=== PATIENT | male | born 1990 | race Caucasian/White ===

== ENCOUNTER 2018-10-07 14:52 | Emergency (ER) | payer MEDICAID, SELFPAY ==
[2018-10-07 14:53] VITALS: BP 122/75; PULSE 88; RESP 14; TEMP 36.8; O2SAT 98; BMI 28.2
--- NOTE | 2018-10-07 14:57 | RAD_ITS ---
STUDY: X-RAY - LEFT ANKLE REASON FOR EXAM: Male, 28 years old. Pain and swelling. No known injury. TECHNIQUE: 3 view(s) of the ankle. COMPARISON: None. FINDINGS: Normal visualized distal tibia and fibula. Normal medial and lateral malleoli. Normal tibiotalar articulation and ankle mortise. Normal visualized talus and calcaneus. The visualized subtalar, talonavicular, calcaneocuboid and tarsal articulations are normal. The soft tissue structures are unremarkable. RAD/Ankle min 3 Views IMPRESSION: Normal x-ray examination of the ankle. Electronically Signed: Anthony Gilbert, at 15:19 EDT , Service support ,
--- NOTE | 2018-10-07 15:48 | ED.DCSUM_ITS ---
- ER Visit Summary Date of Service: 10/07/18 Chief Complaint: Pain and swelling to left ankle [] History of Present Illness: The patient is a 28 M [presents to the emergency department with pain and swelling since this morning to his left ankle. Patient states that he played basketball yesterday but does not recall a time of injury. Patient having a hard time bearing weight secondary to pain. Denies any fever.] Physical Examination: [Left ankle-patient has some diffuse tenderness to palpation about the ankle joint. Tenderness over the medial and lateral malleolus. He is got small joint effusion noted. No erythema or warmth noted. No tenderness over the Achilles tendon. The Achilles tendon is intact he had a normal Chavarria's test. He is neurovascular intact distally.] Test Results: [X-rays of the left ankle obtained and were normal.] Emergency Department Course and Treatment: [She was given an air splint and crutches.] Treatment Plan: [She will be referred to primary care for follow-up within next 5 to 7 days. Patient given a prescription for naproxen and a few [place] for severe pain.] Disposition: Discharged home stable condition] Impression: Left ankle sprain [] This note was generated with [employer] dictation software. It may contain incorrect words, spelling, and punctuation that were not noted in review of the chart maximilian or to signing ED Disposition - Plan for ED Patient: Referrals: Care Physician,No Primary [Primary Care Provider] -
--- NOTE | 2018-10-07 15:49 | DCINST.ED_ITS ---
ED Disposition - Plan for ED Patient: Instructions: ED Sprain Ankle W X Ray Prescriptions: Hydrocodone Bitart/Apap 5-325 [[place] 5MG-325MG] 1 tab PO Q4H PRN PRN 2 Days #10 tab PRN Reason: Pain Naproxen [Naprosyn] 500 mg PO BID PRN #20 tab Referrals: Care Physician,No Primary [Primary Care Provider] - Jordan Norman III, MD [STAFF PHYSICIAN] - 5-7 Days
== END 2018-10-07 16:20 | disposition home or self-care (01) ==
PROVIDERS: Emergency Provider Emergency Medicine
DX: S93.402A Sprain of unspecified ligament of left ankle, initial encounter (principal); X58.XXXA Exposure to other specified factors, initial encounter; Y93.67 Activity, basketball; Y92.9 Unspecified place or not applicable; Y99.9 Unspecified external cause status; Z72.0 Tobacco use; Z86.19 Personal history of other infectious and parasitic diseases
CPT/HCPCS: 73610; 99284

== ENCOUNTER 2018-10-14 00:33 | Emergency (ER) | payer MEDICAID, SELFPAY ==
[2018-10-14 00:34] VITALS: BP 144/80; PULSE 82; RESP 18; TEMP 37; O2SAT 95; BMI 28.4
--- NOTE | 2018-10-14 00:45 | CT_ITS ---
STUDY: CT ORBITS WITH CONTRAST REASON FOR EXAM: Male, 28 years old. Left periorbital pain and swelling RADIATION DOSAGE (If Supplied By Facility): CTDIvol = ( 29.38 ) mGy, DLP = ( 312.38 ) mGycm TECHNIQUE: The patient was scanned in a multi detector CT scanner. Transaxial imaging was performed following the intravenous administration of 50ML IV Isovue 370. Sagittal and coronal images were reconstructed. Individualized dose optimization techniques were used for this CT. COMPARISON: None. FINDINGS: Normal globes. Normal intraconal spaces. Normal optic nerve sheath complex. Normal bilateral extraocular muscles. Normal lacrimal glands. Soft tissue prominence of the left nasolabial fold with an underlying 9 mm hypoattenuated confluence of the subcutaneous fat. Normal bilateral medial and inferior orbital downs. Normal bilateral maxillary bones. Normal bilateral frontozygomatic arches. Normal bilateral zygomatic temporal arches. Normal frontal sinus. Normal ethmoidal sinuses. Normal maxillary sinuses. Normal sphenoid sinuses. CT/Orb Sella Post Fossa Ear W/CON IMPRESSION: Asymmetric prominence of the and soft tissues of the left nasolabial fold with underlying 9 mm hypoattenuated confluence of the subcutaneous fat, potentially representing a cellulitis with underlying developing abscess. Electronically Signed: Edwin Kowalski MD at 1:19 EDT Tel , Service support ,
--- NOTE | 2018-10-14 00:48 | ED.VISSUMM ---
- ER Visit Summary Date of Service: 10/14/18 Chief Complaint: Left eye pain and headache History of Present Illness: The patient is a 28 M reports having surgery to his orbital bone on the left approximately 10 years ago after fracture. Patient states since that time he had intermittent pain. Last evening the area around the left eye became painful, red, and swollen. He states he briefly had blurred vision from that eye but it is now resolved. Physical Examination: Vital signs unremarkable. Patient sitting in a well lit room in no acute distress. Head neck examination reveals mild left periorbital edema and erythema. There is no conjunctival injection. Pupils are equal and reactive. Extraocular movements are fully intact. Remainder of examination is unremarkable. Test Results: CBC reveals white count 12.4. Chemistry studies normal. CT of the orbits with IV contrast reveals asymmetric prominence of the soft tissues along the left nasolabial fold and underlying 9 mm hypoattenuated confluence which may represent cellulitis with an underlying developing abscess. Emergency Department Course and Treatment: Patient was given Toradol, Reglan, Benadryl, and IV fluids. On repeat evaluation headache is improved. He will be treated with a course of Augmentin, first dose given here. He is referred to Dr. Mayorga for ophthalmology follow-up. Treatment Plan: [] Disposition: Discharge Impression: Left periorbital cellulitis This note was generated with [employer] dictation software. It may contain incorrect words, spelling, and punctuation that were not noted in review of the chart prior to signing ED Disposition - Plan for ED Patient: Disposition: Home or Assisted Living Instructions: ED Cellulitis Carla Orbital Prescriptions: Amox/Clavulanate Tablet [Augmentin Tablet] 875 mg PO Q12H #20 tablet Referrals: Margaret Mayorga MD [STAFF PHYSICIAN] - 5-7 Days
[2018-10-14] MEDS: Ketorolac 30 MG/ML Syringe IV (00:54)
[2018-10-14] MEDS: 0.9% Normal Saline 1,000 ML 1000 ML IV (00:54)
[2018-10-14] MEDS: DiphenhydrAMINE 50 MG/ML Syringe 25 MG IV (00:54)
[2018-10-14] MEDS: Metoclopramide 10 MG/2 ML Vial IV (00:55)
[2018-10-14 01:05] LABS: Absolute Lymphocyte Count 2.89 X10^3/ul (0.83-4.51); Absolute Neutrophil Count 8.5 X10^3/uL (2.0-7.7); Basophil# 0.03 X10^3/uL; Basophil% 0.2 % (0-1); Eosinophil# 0.07 X10^3/uL; Eosinophils% 0.6 % (0-5); Hematocrit 43.2 % (40-54); Hemoglobin 15.4 g/dl (13.0-16.5); Lymphocyte # 2.89 X10^3/ul (4.0); Lymphocyte % 23.4 % (19-41); Mean Corp Hgb Conc 35.6 g/gl (32-36); Mean Corpuscular Volume 86.9 fL (80-94); Mean Platelet Vol. 10.7 fl (6.2-12.0); Monocyte# 0.84 X10^3/uL; Monocyte% 6.8 % (0-10); Neutrophil % 68.8 % (47-70); POSITIVE COUNT NO; POSITIVE DIFFERENTIAL NO; POSITIVE MORPHOLOGY NO; Platelet Count 265 K/mm3 (150-450); RBC Distribution Width CV 12.5 % (11.6-14.6); RBC Distribution Width SD 39.7 fl (35.1-43.9); Red Blood Count 4.97 M/mm3 (4.6-6.2); White Blood Count 12.4 K/mm3 (4.4-11.0)
[2018-10-14 01:27] LABS: Anion Gap 8 (5-15); BUN 16 mg/dL (7-18); BUN/Creat Ratio 15.5 RATIO (10-20); Calcium,Total 8.6 mg/dL (8.5-10.1); Chloride 107 mmol/L (98-107); Creatinine, Serum 1.03 mg/dL (0.70-1.30); EST Glomerular Filtration Rate 93 mL/min (>60); Est Glom Filt Rate - Afr Amer 112 mL/min (>60); Estimated Creatinine Clearance 119.29 ml/min; Glucose 106 mg/dL (74-106); Potassium 3.6 mmol/L (3.5-5.1); Sodium Level 140 mmol/L (136-145)
--- NOTE | 2018-10-14 01:33 | ED.RN ---
PER DR. HURLEY, NO VISUAL ACUITY NEEDED.
[2018-10-14] MEDS: Amox/Clavulanate 875 MG Tablet PO (01:50)
[2018-10-14 01:53] VITALS: BP 113/68; PULSE 75; RESP 16; O2SAT 98
== END 2018-10-14 01:54 | disposition home or self-care (01) ==
PROVIDERS: Emergency Provider Emergency Medicine
DX: L03.213 Periorbital cellulitis (principal)
CPT/HCPCS: 70481; 80048; 85025; 96361; 96374; 96375; 99284; J7030; Q9967

== ENCOUNTER 2018-12-10 16:47 | Emergency (ER) | payer MEDICAID, SELFPAY ==
[2018-12-10 16:48] VITALS: BP 117/68; PULSE 70; RESP 16; TEMP 36.7; O2SAT 97; BMI 28.3
--- NOTE | 2018-12-10 17:12 | ED.DCSUM_ITS ---
- ER Visit Summary Date of Service: 12/10/18 Chief Complaint: Possible STD History of Present Illness: The patient is a 28 M there is no past medical or surgical history. Patient is having no symptoms. He states his girlfriend is . When she was checked she was diagnosed with chlamydia. He denies any symptoms whatsoever. No penile discharge no burning or urethritis no dysuria. No fever. States he feels fine. He has had no symptoms. He denies ever having a history of an STD. Physical Examination: Well-appearing young male vital signs stable afebrile. Exam normal. External exam unremarkable. No discharge. No rash. No lymphadenopathy. No tenderness. Otherwise exam is unremarkable. Part while dog exams are normal. Test Results: None Emergency Department Course and Treatment: Patient treated with IM Rocephin and p.o. Zithromax and discharged home. He was instructed not to have sex with his girlfriend since she was the one that was positive for at least 1 week. Treatment Plan: Follow-up as needed. Disposition: Discharge Impression: Exposed to chlamydia wanted treated This note was generated with [employer] dictation software. It may contain incorrect words, spelling, and punctuation that were not noted in review of the chart prior to signing ED Disposition - Plan for ED Patient: Referrals: Care Physician,No Primary [Primary Care Provider] -
--- NOTE | 2018-12-10 17:14 | ED.DEP ---
ED Disposition - Plan for ED Patient: Disposition: Home or Assisted Living Instructions: What Are Sexually Transmitted Diseases (STDs)? Referrals: Dave Lundy MD [STAFF PHYSICIAN] - As Needed
[2018-12-10] MEDS: Azithromycin 250 MG Tablet 1000 MG PO (17:20)
[2018-12-10] MEDS: Ceftriaxone 500 MG Vial 250 MG IM (17:34)
[2018-12-10 17:45] VITALS: RESP 16
--- NOTE | 2018-12-10 17:45 | ED.RN ---
REVIEWED D/C INSTRUCTIONS WITH PT. PT VERBALIZED AN UNDERSTANDING AND DENIES FURTHER QUESTIONS FOR THIS RN.
== END 2018-12-10 18:32 | disposition home or self-care (01) ==
LOC: ED 17:27
PROVIDERS: Emergency Provider Emergency Medicine
DX: Z20.2 Contact with and (suspected) exposure to infections with a predominantly sexual mode of transmission (principal); Z72.0 Tobacco use
CPT/HCPCS: 99283

== ENCOUNTER 2020-09-15 19:32 | Inpatient (IN) | payer MEDICAID, SELFPAY ==
[2020-09-15 19:33] VITALS: BP 132/89; PULSE 88; RESP 15; TEMP 35.8; O2SAT 96; BMI 25.7
--- NOTE | 2020-09-15 19:46 | ED.VIS.GEN ---
History of Present Illness Chief Complaint: Substance Abuse Narrative: Patient presents with symptoms of withdrawal from opiates he last used fentanyl this morning he uses both fentanyl and heroin IV. He has no fever or chills, he denies chest pain he denies eye redness he denies any pain or swelling anywhere. He has nausea, anxiety. Past medical history: Reviewed Medications: Reviewed Social history: Opiate addiction Review of systems: All systems negative except as indicated General: No fever Eyes: No visual changes ENT: No upper airway congestion, normal voice Neck: No neck pain Cardiovascular: No chest pain Respiratory: No shortness of breath or cough Gastrointestinal: No abdominal pain, nausea vomiting or diarrhea Genitourinary: No dysuria Musculoskeletal: Generalized myalgias Skin: No rash Neurological: No memory loss, confusion or any focal weakness Psych: Anxiety. Hematologic: No easy bleeding or easy bruising Physical exam General: Well nourished, Well developed, No Acute Distress Head: Normocephalic, Atraumatic Eyes: Conjunctiva not pale. Normal eye exam ENT: Moist mucous membranes Neck: Supple, Nontender, No lymphadenopathy Cardiovascular: Regular rate, Regular rhythm. Four-point auscultation does not reveal any murmur. Respiratory: No distress, CTA bilaterally Abdomen: Soft, Nontender, Nondistended Back: Nontender, Normal Inspection. Negative for: CVA tenderness Extremities: Nontender, No edema Skin: Normal color, No rash, some piloerection seen Neurological: Alert, Normal Strength, Normal Sensation Psychological: Anxious. Past Medical History - Allergies and Home Meds Allergies/Adverse Reactions: Allergies No Known Allergies Allergy (Verified 09/15/20 19:37) Primary Care Physician: Care Physician,No Primary [Primary Care Provider] - Smoking Status: Current every day smoker Physical Exam Vital Signs/Narrative: Vital Signs Temp Pulse Resp BP Pulse Ox 09/15/20 19:33 96.5 F L 88 15 132/89 H 96 Diagnostic/Tx/Re-eval - Medical Decision Making Patient will be medically cleared. He wishes admission for detox. I gave him Zofran, Vistaril, clonidine in the ED. I will call the hospitalist for admission. ED Disposition - Plan for ED Patient: Disposition: Acute Care Hospital [facility] Diagnosis: Opiate addiction Referrals: Care Physician,No Primary [Primary Care Provider] -
[2020-09-15] MEDS: cloNIDine HCl 0.2 MG Tablet PO (20:06)
[2020-09-15] MEDS: hydrOXYzine 50 MG/ML Vial IM (20:06)
[2020-09-15] MEDS: Ondansetron 4 MG/2 ML Vial IV (20:13)
[2020-09-15 20:31] LABS: Absolute Lymphocyte Count 2.34 X10^3/uL (0.83-4.51); Absolute Neutrophil Count 3.2 X10^3/uL (2.0-7.7); Basophil# 0.07 X10^3/uL; Eosinophil# 0.57 X10^3/uL; Eosinophils% 8.4 % (0-5); Hematocrit 40.8 % (40-54); Hemoglobin 12.3 g/dL (13.0-16.5); Lymphocyte # 2.34 X10^3/ul (0.83-4.51); Lymphocyte % 34.7 % (19-41); Mean Corp Hgb Conc 30.1 g/dL (32-36); Mean Corpuscular Hgb 27.2 pg (27.0-32.0); Mean Corpuscular Volume 90.1 fL (80-94); Mean Platelet Vol. 10.1 fl (6.2-12.0); Monocyte# 0.53 X10^3/uL; Monocyte% 7.9 % (0-10); NRBC Flagged by Analyzer 0 % (0-5); Neutrophil # 3.23 X10^3/uL (2.7-7.7); Neutrophil % 47.9 % (47-70); Platelet Count 383 K/mm3 (150-450); RBC Distribution Width CV 12.4 % (11.6-14.6); RBC Distribution Width SD 40.4 fl (35.1-43.9); Red Blood Count 4.53 M/mm3 (4.6-6.2); White Blood Count 6.8 K/mm3 (4.4-11.0)
[2020-09-15 20:51] LABS: ALB/GLOB Ratio 0.8 RATIO (0.9-2.4); AST(SGOT) 15 U/L (15-37); Alanine Aminotransfer ALT/SGPT 20 U/L (16-61); Albumin, Serum 3.4 g/dL (3.2-5.0); Alkaline Phosphatase 80 U/L (45-117); Anion Gap 4 (5-15); BUN 15 mg/dL (7-18); BUN/Creat Ratio 15.2 RATIO (10-20); Calcium,Total 8.8 mg/dL (8.5-10.1); Chloride 103 mmol/L (98-107); Creatinine, Serum 0.99 mg/dL (0.70-1.30); EST Glomerular Filtration Rate 96 mL/min (>60); Est Glom Filt Rate - Afr Amer 116 mL/min (>60); Estimated Creatinine Clearance 121.93 ml/min; Glucose 93 mg/dL (74-106); Potassium 3.7 mmol/L (3.5-5.1); Protein, Total 7.4 g/dL (6.4-8.2); Sodium Level 138 mmol/L (136-145)
[2020-09-15 21:26] LABS: Alcohol, Blood (Medical)-Serum < 3.0 mg/dL
[2020-09-15 22:09] LABS: Amphetamine Urine VISTA POSITIVE (<1000 ng/mL); Barbiturate Urine VISTA NEGATIVE (< 200 ng/mL); Benzodiazepine Urine VISTA NEGATIVE (< 200 ng/mL); Cocaine Urine VISTA NEGATIVE (< 300 ng/mL); Ecstacy Urine VISTA POSITIVE (< 500 ng/mL); Methadone Urine VISTA NEGATIVE (< 300 ng/mL); PCP Urine VISTA NEGATIVE (< 25 ng/mL); THC Urine VISTA POSITIVE (< 50 ng/mL); Vista UDS pH Range 6
[2020-09-15 22:22] VITALS: BP 122/77; PULSE 66; RESP 14; RESP 15; TEMP 36.6; O2SAT 100; O2SAT 98
[2020-09-15 23:07] VITALS: BMI 26.7; BMI 26.8
[2020-09-15 23:24] VITALS: BP 115/75; PULSE 60; RESP 18; TEMP 36.4; O2SAT 96
--- NOTE | 2020-09-16 00:35 | HP.PCM_ITS ---
Problem List (1) Opioid withdrawal Status: Acute (2) Opiate addiction Status: Acute History of Present Illness Date of Admission: 09/15/20 Chief Complaint: Desire for opioid detoxification and withdrawal The patient is a 30 year old M with a significant history of tobacco abuse; IV drug use and methamphetamine use who presents emergency department with desire for detoxification and withdrawal. Reportedly patient uses about 3 g of heroin or fentanyl per day. He shoots the heroin/fentanyl. He has been using heroin/fentanylsince he was at age 18. Also he snorts methamphetamine. Last time he used heroin/fentanyl or methamphetamine was in the morning of the day of presentation. He reports withdrawal symptoms of abdominal upset and hot flashes. Also he has joint aches. Past Medical History Medical History: Medical History (Last Reviewed 09/16/20 @ 03:[address] Johann Holt MD) Denies previous medical history Allergies No Known Allergies Allergy (Verified 09/15/20 19:37) Home Medications: Ambulatory Orders Medication Instructions Recorded NK 09/15/20 Surgical History: - - Plate in left eye Smoking Status: Current every day smoker Tobacco Use: Cigarettes - *Family History Maternal History Items: Diabetes, - - Rheumatoid arthritis; drug abuse Paternal History Items: Cancer, Diabetes, - - Arthritis; drug abuse Review of Systems Constitutional: Denies: Chills, Fever, Weight Change HEENT: Denies: Head Aches, Sinus Congestion, Sinus Drainage Cardiovascular: Denies: Chest Pain, Palpitations Respiratory: Denies: Cough, Shortness of breath at rest, Sputum production Gastrointestinal: Denies: Nausea, Vomiting Genitourinary: Denies: Dysuria Musculoskeletal: Reports: Joint Pain. Denies: Joint Tenderness Skin: Denies: Rash, Wounds Neurological: Denies: Numbness, Tingling, Focal weakness Psychiatric: Denies: Anxiety, Depression, Homicidal Ideations, Suicidal Ideations Hematologic/ Lymphatic: Denies: Easy Bruising, Easy Bleeding VTE Information - Inpt Only VTE Present on Admission: No VTE Mechan Device Prophylaxis: None VTE Pharm Prophylaxis ordered?: No Reason prophylaxis not ordered:: Treatment Not Indicated - Low risk, encouraged to ambulate Patient Problems: Active and Suspected Problems (Last Updated 09/16/20 @ 00:[address] Johann Holt MD) Opiate addiction (Acute) Opioid withdrawal (Acute) - Physical Exam Vitals/I&O's: Vital Signs Temp Pulse Resp BP Pulse Ox 97.5 F L 60 18 115/75 96 09/15/20 23:24 09/15/20 23:24 09/15/20 23:24 09/15/20 23:24 09/15/20 23:24 Oxygen Delivery Method Room Air Weight: 89.5 kg Body Mass Index (BMI) 26.7 General: Alert, Oriented x3, Cooperative HEENT: Atraumatic, PERRLA, EOMI, Normocephalic Neck: Supple, No JVD, Negative Carotid Bruits Lungs: Clear to auscultation, Normal air movement Cardiovascular: Regular rate, No murmurs Abdomen: Bowel Sounds Present, Soft, Non Tender Extremities: No edema, Capillary Refill Less than 3 Seconds Skin: No rashes, No breakdown Musculoskeletal: No Tenderness to Palpation of Joints or Extremities Neurological: Cranial nerves II-XII grossly intact Psych/Mental Status: Anxious Laboratory Results 09/15/20 20:16: WBC 6.8, RBC 4.53 L, Hgb 12.3 L, Hct 40.8, MCV 90.1, MCH 27.2, MCHC 30.1 L, RDW Std Deviation 40.4, RDW Coeff of Alden 12.4, Plt Count 383, MPV 10.1, Immature Gran % (Auto) 0.100, Neut % (Auto) 47.9, Lymph % (Auto) 34.7, Bennett % (Auto) 7.9, Eos % (Auto) 8.4 H, Baso % (Auto) 1.0, Absolute Neuts (auto) 3.2, Absolute Lymphs (auto) 2.34, Nucleated RBC % 0 09/15/20 20:16: Sodium 138, Potassium 3.7, Chloride 103, Carbon Dioxide 31.0, Anion Gap 4 L, BUN 15, Creatinine 0.99, Estim Creat Clear Calc 121.93, Est GFR (MDRD) Af Amer 116, Est GFR (MDRD) Non-Af 96, BUN/Creatinine Ratio 15.2, Glucose 93, Calcium 8.8, Total Bilirubin 0.20, AST 15, ALT 20, Alkaline Phosphatase 80, Total Protein 7.4, Albumin 3.4, Globulin 4.0, Albumin/Globulin Ratio 0.8 L 09/15/20 20:16: Ethyl Alcohol < 3.0 09/15/20 21:25: Urine Opiates Screen POSITIVE H, Urine Methadone Screen NEGATIVE, Ur Barbiturates Screen NEGATIVE, Ur Phencyclidine Scrn NEGATIVE, Ur Amphetamines Screen POSITIVE H, U Methamphetamin-MDMA POSITIVE H, U Benzodiazepines Scrn NEGATIVE, Urine Cocaine Screen NEGATIVE, U Cannabinoids Screen POSITIVE H, Ur Drug Screen Comment Current Medications Buprenorphine HCl (Buprenorphine Hcl 2 Mg Tab.Subl) 0 mg SL Q8H NISSA; Taper Stop: 09/18/20 23:05 Clonidine (Clonidine Hcl 0.1 Mg Tablet) 0.1 mg PO Q8H PRN PRN PRN Reason: RESTLESSNESS Dicyclomine HCl (Dicyclomine 10 Mg Capsule) 20 mg PO Q6H PRN PRN PRN Reason: Abdominal Discomfort Gabapentin (Gabapentin 300 Mg Capsule) 300 mg PO Q8H PRN PRN PRN Reason: moderate to severe anxiety Hydroxyzine Pamoate (Hydroxyzine Raegan 25 Mg Capsule) 50 mg PO Q6H PRN PRN PRN Reason: mild anxiety Loperamide HCl (Loperamide 2 Mg Capsule) 2 mg PO Q4H PRN PRN PRN Reason: LOOSE STOOLS Methocarbamol (Methocarbamol 750 Mg Tablet) 1,500 mg PO Q6H PRN PRN PRN Reason: MUSCLE SPASM Ondansetron HCl (Ondansetron 8 Mg Tablet) 8 mg PO Q8H PRN PRN PRN Reason: NAUSEA Trazodone HCl (Trazodone 100 Mg Tablet) 100 mg PO QHS PRN PRN PRN Reason: INSOMNIA Assessment/Plan All Active Problems (Last Updated 09/16/20 @ 00:[address] Johann Holt MD) Opiate addiction (Acute) Opioid withdrawal (Acute) The patient is a 30 year old M with a significant history of tobacco abuse; IV drug use and methamphetamine use who presents emergency department with desire for detoxification and withdrawal. Opioid dependence and withdrawal Urine toxicology was reviewed. Urine toxicology was positive for opiates; amphetamines; but amphetamines; and cannabinoids. Urine ethanol level was less than 3. Patient be started on Subutex and other adjunctive medications: Gabapentin as needed; dicyclomine as needed; Vistaril as needed; methocarbamol as needed; cl onidine as needed; Imodium as needed; trazodone as needed and Zofran as needed. Monitor COWS and CINA score Tobacco abuse Counseled Declined nicotine patch . DVT prophylaxis Low risk Encourage to ambulate Inpatient E&M: 93893 Init Hosp L3
[2020-09-16 05:02] VITALS: BP 115/69; PULSE 64; RESP 14; TEMP 36.6; O2SAT 100
[2020-09-16 08:53] VITALS: BP 109/75; PULSE 64; RESP 14; TEMP 36.6; O2SAT 98
[2020-09-16 14:00] VITALS: BP 110/68; PULSE 70; RESP 14; TEMP 36.6; O2SAT 97
[2020-09-16] MEDS: Methocarbamol 750 MG Tablet 1500 MG PO (14:07)
[2020-09-16] MEDS: hydrOXYzine PAM 25 MG Capsule 50 MG PO ×2 (14:07→23:24)
[2020-09-16] MEDS: Buprenorphine HCl 2 MG TAB.SUBL SL (17:53)
[2020-09-16 19:07] VITALS: BP 132/82; PULSE 70; RESP 16; TEMP 37; O2SAT 98
[2020-09-16] MEDS: cloNIDine HCl 0.1 MG Tablet PO (19:08)
[2020-09-16] MEDS: Gabapentin 300 MG Capsule PO (19:08)
--- NOTE | 2020-09-16 20:06 | NURSING ---
Pt yelling out couple of times since I came on shift. I went back and checked on pt and asked him if he had yelled out. He said he had done so. I asked him what was going on and he refused to talk to me. A short while later Demetria RN went into pt's room and I went in as well. I advised Herber that he cannot yell out like that. He apologized but said he couldn't help it. I advised him to put on his call light so we could help him. Demetria contacting MD to see about further meds.
[2020-09-16] MEDS: Haloperidol Lactate 5 MG/ML Vial 2 MG IM (20:13)
[2020-09-16 23:19] VITALS: BP 130/85; PULSE 77; RESP 16; TEMP 36.8; O2SAT 100
[2020-09-16] MEDS: traZODone 100 MG Tablet PO (23:24)
[2020-09-17] MEDS: Buprenorphine HCl 2 MG TAB.SUBL SL ×3 (01:38→17:04)
[2020-09-17] MEDS: Gabapentin 300 MG Capsule PO (04:00)
[2020-09-17 04:01] VITALS: BP 134/86; PULSE 81; RESP 18; TEMP 37.2; O2SAT 99
[2020-09-17] MEDS: cloNIDine HCl 0.1 MG Tablet PO (04:04)
[2020-09-17] MEDS: hydrOXYzine PAM 25 MG Capsule 50 MG PO ×3 (06:36→20:42)
[2020-09-17 08:40] VITALS: BP 125/78; PULSE 67; RESP 16; TEMP 36.7; O2SAT 96
--- NOTE | 2020-09-17 11:12 | ADDICTION ---
This teletypewriter installer attempted to meet with PT. PT requested to complete documentation at next visit (09/18) due to not feeling well.
[2020-09-17] MEDS: Methocarbamol 750 MG Tablet 1500 MG PO ×2 (12:21→20:42)
[2020-09-17 12:23] VITALS: BP 112/67; PULSE 74; RESP 18; TEMP 36.7; O2SAT 98
[2020-09-17 17:06] VITALS: BP 113/69; PULSE 62; RESP 16; TEMP 36.8; O2SAT 97
--- NOTE | 2020-09-17 17:34 | PCM.HOSP.N ---
Hospitalist Note Patient was seen and examined briefly today, he was lying in bed with covers pulled up over his head and would not remove the covers to talk with this examiner. Patient did not complain of any muscle pain, nausea vomiting, or chills. Addiction social services counselor made contact with the patient today but the patient did not feel well enough to talk with him. We will continue patient on current medications.
[2020-09-17] MEDS: traZODone 100 MG Tablet PO (20:42)
[2020-09-17 20:45] VITALS: BP 128/79; PULSE 70; RESP 18; TEMP 36.9; O2SAT 98
[2020-09-18 01:07] VITALS: BP 131/78; PULSE 72; RESP 16; TEMP 37.4; O2SAT 98
[2020-09-18] MEDS: Buprenorphine HCl 2 MG TAB.SUBL SL ×3 (01:07→17:39)
[2020-09-18 09:16] VITALS: BP 109/61; PULSE 75; RESP 16; TEMP 36.7; O2SAT 97
[2020-09-18] MEDS: cloNIDine HCl 0.1 MG Tablet PO (09:46)
--- NOTE | 2020-09-18 13:13 | ADDICTION ---
This mortgage loan underwriter met with PT to complete ASAM, MSE, DUDIT assessments and to plan for d/c. All assessments completed, faxed to [facility] and placed in PT's chart. PT plans to f/u with [facility]. PT refused clinical appointments for f/u at this time. PT kept head covered with blanket during visit and refused to engage with this worker. Bare minimum information was obtained to complete assessments.
--- NOTE | 2020-09-18 15:30 | PN_ITS ---
Patient Problems: Active and Suspected Problems (Last Reviewed 09/16/20 @ 03:[address] Johann Holt MD) Opiate addiction (Acute) Opioid withdrawal (Acute) Subjective: Patient was seen and examined today, he appears lethargic and somnolent still although he does answer simple questions appropriately. Patient's affect remains flat. - Physical Exam Vitals/I&O's: Vital Signs Temp Pulse Resp BP Pulse Ox 98.1 F 75 16 109/61 97 09/18/20 09:16 09/18/20 09:16 09/18/20 09:16 09/18/20 09:16 09/18/20 09:16 Oxygen Delivery Method Room Air Weight: 89.5 kg Body Mass Index (BMI) 26.7 Intake and Output for Last 24 Hours 09/16/20 09/17/20 09/18/20 23:59 23:59 23:59 Intake Total 200 / 350 1850 / 1850 Balance 200 / 350 1850 / 1850 General: Oriented x3, Cooperative, No apparent distress, Well developed, Lethargic HEENT: Atraumatic, PERRLA, EOMI, Normocephalic Oral: Moist Mucosa Neck: Supple, No JVD, Trachea Midline, Thyroid Normal Size and Texture Lungs: Clear to auscultation, Normal air movement, No rhonchi, No wheeze, No rales Cardiovascular: Regular rate, Regular Rhythm, Normal S1, Normal S2, No murmurs, PMI Normal, No rub noted, No Gallop Abdomen: Bowel Sounds Present, Soft, Non Tender, Non-Distended Extremities: No clubbing, No cyanosis, No edema, Capillary Refill Less than 3 Seconds Skin: No rashes, No breakdown Musculoskeletal: No Tenderness to Palpation of Joints or Extremities Neurological: Cranial nerves II-XII grossly intact, Neuro grossly intact, Sensory exam intact to light touch and pain Psych/Mental Status: Appropriate, Flat Affect Current Medications Buprenorphine HCl (Buprenorphine Hcl 2 Mg Tab.Subl) 2 mg SL Q8H NISSA; Taper Stop: 09/19/20 17:14 Last Admin: 09/18/20 09:14 Dose: 2 mg Documented by: Clonidine (Clonidine Hcl 0.1 Mg Tablet) 0.1 mg PO Q8H PRN PRN PRN Reason: RESTLESSNESS Last Admin: 09/18/20 09:46 Dose: 0.1 mg Documented by: Dicyclomine HCl (Dicyclomine 10 Mg Capsule) 20 mg PO Q6H PRN PRN PRN Reason: Abdominal Discomfort Hydroxyzine Pamoate (Hydroxyzine Raegan 25 Mg Capsule) 50 mg PO Q6H PRN PRN PRN Reason: mild anxiety Last Admin: 09/17/20 20:42 Dose: 50 mg Documented by: Loperamide HCl (Loperamide 2 Mg Capsule) 2 mg PO Q4H PRN PRN PRN Reason: LOOSE STOOLS Methocarbamol (Methocarbamol 750 Mg Tablet) 1,500 mg PO Q6H PRN PRN PRN Reason: MUSCLE SPASM Last Admin: 09/17/20 20:42 Dose: 1,500 mg Documented by: Ondansetron HCl (Ondansetron 8 Mg Tablet) 8 mg PO Q8H PRN PRN PRN Reason: NAUSEA Sodium Chloride (0.9% Saline Lock 10 Ml Syringe) 10 - 40 ml IV UD PRN PRN Reason: SALINE FLUSH Trazodone HCl (Trazodone 100 Mg Tablet) 100 mg PO QHS PRN PRN PRN Reason: INSOMNIA Last Admin: 09/17/20 20:42 Dose: 100 mg Documented by: Medical Necessity - Tobacco Use Smoking Status: Current every day smoker Tobacco Use: Cigarettes Assessment/Plan All Active Problems (Last Reviewed 09/16/20 @ 03:[address] Johann Holt MD) Opiate addiction (Acute) Opioid withdrawal (Acute) #1 acute opiate withdrawal-continue present treatment, at 180 will need to talk with the patient concerning outpatient follow-up #2 chronic opioid addiction Inpatient E&M: 147[address] [facility] Hosp L2
[2020-09-18 17:42] VITALS: BP 116/74; PULSE 67; RESP 18; TEMP 36.7; O2SAT 98
[2020-09-18 22:04] VITALS: BP 114/67; PULSE 70; RESP 16; TEMP 36.6; O2SAT 100
[2020-09-19 05:37] VITALS: BP 121/79; PULSE 66; RESP 18; TEMP 37.3; O2SAT 99
--- NOTE | 2020-09-19 11:02 | DCINST_ITS ---
- Discharge Diagnoses Current Active Problems: Current Active and Chronic Problems (Last Reviewed 09/16/20 @ 03:[address] Johann Holt MD) Opiate addiction (Acute) Opioid withdrawal (Acute) You will use the following diet at home:: No restrictions May resume sexual activity in: No Restrictions Weight Bearing Status: Full weight bearing Allergies/Adverse Reactions: Allergies No Known Allergies Allergy (Verified 09/15/20 19:37) Medications to take at Discharge NK 09/15/20 Primary Care Physician: Care Physician,No Primary [Primary Care Provider] - Please follow up with your Primary Care Physician in: in 2-3 weeks Test Results: Test results from this visit will be discussed in further detail at your follow- up appointment, if applicable.
--- NOTE | 2020-09-19 11:21 | CASEMGMT ---
ERIKA CM in to pt room to provide pt with local in network primary care physicians pamphlet per doctor's request. Pt denied further needs.
--- NOTE | 2020-09-21 18:49 | DS.PCM_ITS ---
Discharge Date and Diagnosis - Problem List Patient Problems: Active and Suspected Problems (Last Reviewed 09/16/20 @ 03:[address] Johnan Holt MD) Opiate addiction (Acute) Opioid withdrawal (Acute) Date of Admission: 09/15/20 Date of Discharge: 09/19/20 - Primary Discharge Diagnosis Acute Problems: Active Problems (Last Reviewed 09/16/20 @ 03:[address] Johann Holt MD) #1 acute opiate withdrawal #2 chronic opioid addiction Hospital Course and Treatment Operations: None Procedures: None Summary of Care Provided: The patient is a 30 year old M was seen in the emergency room at [facility] requesting services for detox from IV fentanyl and heroin. Patient was admitted to [place] [address] and was seen by addiction social work assistant, he told the addiction social work assistant that he preferred to follow-up as an outpatient with a program other than [facility]. Patient symptoms of withdrawal were minimal during his hospital stay. On 09/19/2020, patient was seen and examined: On examination he appeared his stated age, he was in no distress. Vital signs as documented. Skin warm and dry and without overt rashes. Neck without JVD, neck was supple, trachea midline, thyroid was normal. Lungs clear bilaterally, normal air movement was noted. Heart exam notable for regular rhythm, normal sounds and absence of murmurs, rubs or gallops. Abdomen unremarkable and without evidence of organomegaly, masses, or abdominal aortic enlargement. Bowel sounds are present, abdomen is not distended. Extremities nonedematous, no cyanosis was noted, no clubbing was noted. Neuro: Cranial nerves II through XII are grossly intact, no focal motor deficits were noted, sensation to light touch and pinprick intact, motor exam 5/5 throughout. Psych: Patient is alert and oriented x3, he does not appear anxious or depressed, he does not appear agitated. Patient was discharged in stable condition on 09/19/2020. Patient refused clinical appointments for follow-up as outpatient. Patient Problems: Active and Suspected Problems (Last Reviewed 09/16/20 @ 03:[address] Johann Holt MD) Opiate addiction (Acute) Opioid withdrawal (Acute) - Physical Exam Vitals/I&O's: Vital Signs Temp Pulse Resp BP Pulse Ox 99.2 F H 66 18 121/79 H 99 09/19/20 05:37 09/19/20 05:37 09/19/20 05:37 09/19/20 05:37 09/19/20 05:37 Oxygen Delivery Method Room Air Weight: 89.5 kg Body Mass Index (BMI) 26.7 Intake and Output for Last 24 Hours 09/19/20 09/20/20 09/21/20 23:59 23:59 23:59 Intake Total 270 / 270 Balance 270 / 270 May resume sexual activity in: No Restrictions Weight Bearing Status: Full weight bearing Home Medications: Medications to take at Discharge NK 09/15/20 Primary Care Physician: Care Physician,No Primary [Primary Care Provider] - Please follow up with your Primary Care Physician in: in 2-3 weeks Disposition: Home Minutes spent on discharge:: 31 Patient Condition:: Stable Medical Necessity - Tobacco Use Smoking Status: Current every day smoker Tobacco Use: Cigarettes Meaningful Use Info Meaningful Use Diagnoses (Choose all that apply): None applicable Inpatient E&M: 75766 Disch Hosp
== END 2020-09-19 11:54 | disposition home or self-care (01) | DRG 773 ==
LOC: ED 20:32 → MS3 21:59
PROVIDERS: Admitting Provider Hospitalist; Emergency Provider Emergency Medicine; Visit Provider Internal Medicine
DX: F11.23 Opioid dependence with withdrawal (principal); F17.210 Nicotine dependence, cigarettes, uncomplicated
CPT/HCPCS: 80053; 80307; 82077; 85025; 97802; 99285; 99406; A4216; J2405

== ENCOUNTER 2021-01-10 21:04 | Emergency (ER) | payer MEDICAID, SELFPAY ==
[2020-09-15 23:07] VITALS: BMI 26.7
[2021-01-10 21:05] VITALS: BP 140/97; PULSE 98; RESP 16; TEMP 36.4; O2SAT 98; BMI 27.8
[2021-01-10 23:00] VITALS: RESP 16
--- NOTE | 2021-01-10 23:07 | EX.ED.DYSGE1 ---
HPI History of Present Illness Chief Complaint: Abscess Narrative Narrative: Patient presenting with cellulitis on the left medial thigh. Patient states is been going on for about 4 days. He denies any drainage from the area. He denies systemic signs or symptoms. Patient has a history of drug abuse but states he has been clean. He does have a history of abscess but is unsure if he has a history of MRSA. Patient has not been on antibiotics for this. He denies any injury that would cause this. [facility] Medical History Denies previous medical history Home Medications clindamycin HCl 450 mg PO TID 10 Days #90 cap 01/10/21 [Rx Last Taken Unknown] Allergy/AdvReac Type Severity Reaction Status Date / Time No Known Allergies Allergy Verified 01/10/21 21:04 Social History Smoking Status: Current every day smoker tobacco type: cigarettes ROS ROS ED Constitutional Constitutional ED: Denies chills or fever(s) Eyes Eyes: Denies blurry vision or diplopia ENT ENT ED: Denies rhinorrhea or sore throat Cardiovascular Cardiovascular: Denies chest pain, palpitations or racing heartbeat Respiratory/Chest Respiratory/Chest: Denies cough, dyspnea or sputum Gastrointestinal Gastrointestinal: Denies abdominal pain, nausea or vomiting Genitourinary Genitourinary ED: Denies dysuria or hematuria Musculoskeletal Musculoskeletal: Reports other Details: Left thigh pain Integumentary Reports rash Neurologic Neurologic: Denies headache(s) or paresthesias EXAM Physical Exam Const Vital Signs: 01/10/21 21:05 01/10/21 23:00 Temperature 97.6 F L Temperature Source Temporal Pulse Rate 98 Respiratory Rate 16 16 Blood Pressure 140/97 H Blood Pressure Mean 111 Pulse Ox 98 Oxygen Delivery Method Room Air Positive well nourished General Appearance ED: NAD HEENT Reports moist mucous membranes Negative for trauma Eyes PERRL and EOMs intact bilaterally Cardio regular rate and regular rhythm Extremity Extremity Narrative: Erythema and induration noted to the left proximal thigh medially. This area measures about 8 x 8 cm. There is no crepitance palpated. It is tender centrally. I do not feel any gaby fluctuance to this area. Neuro oriented x3 and CN's II-XII intact bilaterally Sensorium / Orientation: alert Skin Skin Narrative: As described above MDM MDM MDM Narrative Medical decision making narrative: Patient presents with cellulitis in the left medial thigh as described previously. Patient does have tenderness in centrally in the area of cellulitis. There is no focal fluctuance. I did offer to anesthetize the area with lidocaine with epinephrine and to make an incision to see if there is any drainage from the area however the patient declines this. He states he would prefer to try antibiotics first. I did assistant corporation counsel him to do sitz bath as often as possible and I will put him on clindamycin for home. He is counseled that if he develops a fluctuant mass or worsening symptoms he should return to the ED. He was given follow-up with a primary care physician otherwise. Patient given first dose of antibiotics in the ED. Patient stable this time. Impression: #1. Left thigh cellulitis Discharge Plan Triage Chief Complaint: Abscess ED Provider: Renaldo Callaway Dx/Rx/DC Orders Instructions: ED Cellulitis Prescriptions: New clindamycin HCl 150 mg capsule 450 mg PO TID 10 Days Qty: 90 RF: 0 Primary Care Provider: Care Physician,No Primary Referrals: Matteo Mata MD [STAFF PHYSICIAN] - As soon as possible Care Physician,No Primary [Primary Care Provider] - Disposition Disposition: Home, Self Care
[2021-01-10] MEDS: Clindamycin HCl 150 MG Capsule 450 MG PO (23:15)
== END 2021-01-10 23:16 | disposition home or self-care (01) ==
PROVIDERS: Emergency Provider Student in an Organized Health Care Education/Training Program
DX: L03.116 Cellulitis of left lower limb (principal); F17.210 Nicotine dependence, cigarettes, uncomplicated
CPT/HCPCS: 99283

== ENCOUNTER 2021-03-23 11:23 | Emergency (ER) | payer MEDICAID, SELFPAY ==
[2021-03-23] VITALS (7 sets, daily range): BP systolic 102–134; BP diastolic 61–85; PULSE 81–104; RESP 15–20; TEMP 35.9–37; O2SAT 97–100; BMI 26.4
--- NOTE | 2021-03-23 11:34 | EX.ED.DYSGE1 ---
HPI History of Present Illness Chief Complaint: Wound Informant: patient Narrative Narrative: 30-year-old male presents to the emergency department with swelling and redness of the right hand and wrist. Patient states that he injected methamphetamines a couple times into the wrist and in the proximal posterior forearm. He states that the wrist is very hard and swollen in the back of his hand is becoming red. He states that his fingers feel okay and is able to move them. He notes some swelling over the proximal posterior forearm from a missed injection as well. No reported fevers. [facility] Medical History (Updated 03/23/21 @ 17:[address] Jorge Luis Falcon DO) Denies previous medical history Substance abuse Home Medications NK 03/23/21 [History Last Taken Unknown] Allergy/AdvReac Type Severity Reaction Status Date / Time No Known Allergies Allergy Verified 03/23/21 12:08 Social History (Updated 03/23/21 @ 11:[address] Jorge Luis Falcon DO) Smoking Status: Current every day smoker tobacco type: cigarettes substance use type: amphetamines and IV drugs ROS ROS ED Constitutional Constitutional ED: Denies chills or weight loss Eyes Eyes: Denies change in vision or diplopia ENT ENT ED: Denies ear pain, rhinorrhea or sore throat Cardiovascular Cardiovascular: Denies chest pain, orthopnea, palpitations or racing heartbeat Respiratory/Chest Respiratory/Chest: Denies cough, dyspnea or orthopnea Gastrointestinal Gastrointestinal: Denies abdominal pain, diarrhea, nausea or vomiting Genitourinary Genitourinary ED: Denies dysuria, hematuria or urinary frequency Musculoskeletal Musculoskeletal: Reports other Details: See history of present illness ; Denies arthralgias or myalgias Integumentary Reports other Details: See history of present illness ; Denies abscess or rash Neurologic Neurologic: Denies headache(s) or weakness Psychiatric Psychiatric: Denies anxiety, depression, suicidal ideation or suicidal thoughts Endocrine Endocrinology: Denies polydipsia, polyphagia or polyuria Allergic/Immunologic Allergic/Immunologic ED: Denies mouth swelling, tongue swelling or urticaria EXAM Physical Exam Const Vital Signs: 03/23/21 11:24 03/23/21 11:25 03/23/21 14:01 Temperature 96.6 F L 96.6 F L 98.5 F Temperature Source Temporal Temporal Oral Pulse Rate 99 99 97 Respiratory Rate 20 H 20 H 16 Blood Pressure 116/85 H 116/85 H 124/76 H Blood Pressure Mean 95 95 92 Pulse Ox 100 100 97 Oxygen Delivery Method Room Air Room Air Room Air 03/23/21 14:02 03/23/21 15:13 03/23/21 16:01 Temperature 98.6 F Temperature Source Oral Pulse Rate 104 H 84 81 Respiratory Rate 16 15 15 Blood Pressure 124/76 H 124/69 H 102/79 Blood Pressure Mean 92 87 86 Pulse Ox 97 100 98 Oxygen Delivery Method Room Air Room Air Room Air Positive well nourished and well developed General Appearance ED: well developed HEENT Reports normocephalic, head/scalp atraumatic, TM's clear and moist mucous membranes Negative for trauma Tympanic Membrane ED: Yes TM's clear Eyes PERRL and EOMs intact bilaterally Neck no lymphadenopathy, supple and no JVD Resp normal respiratory effort and clear to auscultation bilaterally Cardio regular rate, regular rhythm and no murmurs GI normal to inspection, nondistended, normoactive bowel sounds and non-tender Palpation: soft Back/Spine no CVA tenderness and normal ROM Extremity Extremity Narrative: Patient has tenderness and firm swelling of the right wrist. The middle forearm appears soft. The proximal posterior forearm demonstrates some firmness and swelling as well. The dorsum of the right hand is swollen but soft and there is mild erythema. The fingers. Neurovascularly intact. There is no pain with flexion or extension. General Extremety ED: Yes edema General Extremity: edema Neuro oriented x3 and CN's II-XII intact bilaterally Sensorium / Orientation: alert Motor Exam: strength 5/5 throughout Psych mental status grossly normal Mood & Affect: Negative for depressed or tearful Skin no rashes or lesions noted and no wounds MDM MDM MDM Narrative Medical decision making narrative: White count elevated 18.3. Creatinine 1.45. Lactic acid is elevated at 2.2. Blood cultures were obtained. CTA of the upper extremity with and without contrast was obtained. This is demonstrating significant subcutaneous edema throughout the forearm wrist and hand with a 3.7 cm x 1.3 x 1.4 fluid collection with peripheral enhancement at the radial aspect of the distal forearm. There is intramuscular edema without obvious foreign body. There is no air in the deep fascial soft tissues. Concern for diminished dorsal venous flow was expressed by the radiologist. Patient has received vancomycin and Zosyn. We do not currently have hand or plastics coverage at this institution. I spoke with orthopedist Dr. Shabazz who recommends transfer to higher level of care. I discussed the findings with the patient and recommended transfer to higher level of care as we do not have somebody here currently that can care for him.. I spoke with [facility] and [facility] and they do not have any beds. [facility] also does not have any beds at this time. Patient has been accepted by [facility] by Dr. Huitron from hand surgery. He will go to the emergency room. Repeat examination shows the patient's fingers to be white in the tips blue with significantly decreased capillary refill. This is a change from his initial examination. I informed the patient that he needs to go either by ambulance or by air and he tells me Fuck you, I am not going in a fucking ambulance and being stuck in [place] by myself. Patient was informed that he will most likely lose his hand if care continues to be delayed. Patient states he does not care. While he is trying to find a ride nursing spoke with him to give him directions he states now he would like to go by ambulance. Lab Data Attestation: I reviewed the patient's lab results. Labs: Laboratory Results - last 24 hr 03/23/21 03/23/21 03/23/21 11:50 12:10 12:10 WBC 18.3 H RBC 5.10 Hgb 15.4 Hct 44.1 MCV 86.5 MCH 30.2 MCHC 34.9 RDW Std Deviation 38.9 RDW Coeff of [place] 12.3 Plt Count 301 MPV 10.1 Immature Gran % (Auto) 0.300 Neut % (Auto) 83.2 H Lymph % (Auto) 10.8 L [place] % (Auto) 4.8 Eos % (Auto) 0.5 Baso % (Auto) 0.4 Absolute Neuts (auto) 15.2 H Absolute Lymphs (auto) 1.97 Nucleated RBC % 0 PT 13.8 INR 1.1 APTT 36.9 H Sodium 137 Potassium 4.9 Chloride 102 Carbon Dioxide 28.0 Anion Gap 7 BUN 16 Creatinine 1.45 H Estim Creat Clear Calc 83.25 Est GFR (MDRD) Af Amer 74 Est GFR (MDRD) Non-Af 61 BUN/Creatinine Ratio 11.0 Glucose 126 H Lactic Acid Calcium 9.4 Total Bilirubin 0.90 AST 32 ALT 26 Alkaline Phosphatase 70 Total Protein 7.9 Albumin 3.5 Globulin 4.4 H Albumin/Globulin Ratio 0.8 L 03/23/21 12:10 WBC RBC Hgb Hct MCV MCH MCHC RDW Std Deviation RDW Coeff of [place] Plt Count MPV Immature Gran % (Auto) Neut % (Auto) Lymph % (Auto) [place] % (Auto) Eos % (Auto) Baso % (Auto) Absolute Neuts (auto) Absolute Lymphs (auto) Nucleated RBC % PT INR APTT Sodium Potassium Chloride Carbon Dioxide Anion Gap BUN Creatinine Estim Creat Clear Calc Est GFR (MDRD) Af Amer Est GFR (MDRD) Non-Af BUN/Creatinine Ratio Glucose Lactic Acid 2.2 H* Calcium Total Bilirubin AST ALT Alkaline Phosphatase Total Protein Albumin Globulin Albumin/Globulin Ratio Radiography Diagnostic Testing: Clinical Impression(s) from Imaging Studies Upper Extremity CTA 03/23/21 11:37 IMPRESSION: Diminished dorsal venous flow at the wrist extending to the second/third fingers from mixing artifact or venous thrombosis. Patent radial and ulnar arteries. Severe edema of the forearm, wrist, and hand from vascular insufficiency or cellulitis. Small peripherally enhancing collection at the radial aspect of the distal forearm, suspicious for abscess. Individualized dose optimization techniques were used for this CT. at 1349 Reported and signed by: Lilliam Leo MD Electronically Signed: Lilliam Leo MD at 13:48 EDT Tel , Service support , Discharge Plan Triage Chief Complaint: Wound ED Provider: Jorge Luis Falcon Dx/Rx/DC Orders Clinical Impression: Active intravenous drug use, Cutaneous abscess of right wrist, Sepsis, Localized swelling of right forearm, Ischemia of hand Prescriptions: No Action NK RF: 0 Primary Care Provider: Care Physician,No Primary Referrals: Care Physician,No Primary [Primary Care Provider] - Disposition Disposition: Acute Care Hospital Discharge Location: [facility]
--- NOTE | 2021-03-23 11:37 | CT_ITS ---
HISTORY: IV drug user with redness and swelling to right forearm and hand, evaluate for foream/wrist abscess. TECHNIQUE: Helically acquired images were obtained of the right upper extremity upper extremity using 2-D/3-D CT angiographic protocol. A radiation dose optimization technique was used for this scan. IV Contrast dosage and agent: 100 mL Isovue-370. 638 images. COMPARISON: None. FINDINGS: BRACHIAL ARTERY: Patent visualized distal portion. RADIAL ARTERY: Patent. ULNAR ARTERY: Patent. OTHER: Diminished dorsal venous flow at the wrist extending to the second and third fingers. SOFT TISSUES: Severe subcutaneous edema throughout the forearm, wrist, and hand with ill-defined fluid dorsally. 1.3 x 1.4 x 3.7 cm fluid collection with mild peripheral enhancement at the radial aspect of the distal forearm. Intramuscular edema also seen without radiopaque foreign body. No air in the deep fascial soft tissues. BONES/JOINTS: Intact without acute fracture or cortical erosion. Normal alignment without dislocation or significant degenerative change. CT/CTA Upper Ext W/WO Contrast IMPRESSION: Diminished dorsal venous flow at the wrist extending to the second/third fingers from mixing artifact or venous thrombosis. Patent radial and ulnar arteries. Severe edema of the forearm, wrist, and hand from vascular insufficiency or cellulitis. Small peripherally enhancing collection at the radial aspect of the distal forearm, suspicious for abscess. Individualized dose optimization techniques were used for this CT. at 1349 Reported and signed by: Lilliam Leo MD Electronically Signed: Lilliam Leo MD at 13:48 EDT Tel , Service support ,
[2021-03-23 12:04] LABS: Absolute Lymphocyte Count 1.97 X10^3/uL (0.83-4.51); Absolute Neutrophil Count 15.2 X10^3/uL (2.0-7.7); Basophil# 0.08 X10^3/uL; Basophil% 0.4 % (0-1); Eosinophils% 0.5 % (0-5); Hematocrit 44.1 % (40-54); Hemoglobin 15.4 g/dL (13.0-16.5); Lymphocyte # 1.97 X10^3/ul (0.83-4.51); Lymphocyte % 10.8 % (19-41); Mean Corp Hgb Conc 34.9 g/dL (32-36); Mean Corpuscular Hgb 30.2 pg (27.0-32.0); Mean Corpuscular Volume 86.5 fL (80-94); Mean Platelet Vol. 10.1 fl (6.2-12.0); Monocyte# 0.87 X10^3/uL; Monocyte% 4.8 % (0-10); NRBC Flagged by Analyzer 0 % (0-5); Neutrophil # 15.19 X10^3/uL (2.7-7.7); Neutrophil % 83.2 % (47-70); Platelet Count 301 K/mm3 (150-450); RBC Distribution Width CV 12.3 % (11.6-14.6); RBC Distribution Width SD 38.9 fl (35.1-43.9); White Blood Count 18.3 K/mm3 (4.4-11.0)
[2021-03-23] MEDS: Ondansetron 4 MG/2 ML Vial IV (12:07)
[2021-03-23] MEDS: 0.9% Normal Saline 1,000 ML 1000 ML IV (12:07)
[2021-03-23] MEDS: Morphine 4 MG/ML Syringe IV ×2 (12:07→14:34)
[2021-03-23 12:29] LABS: International Normalized Ratio 1.1; Prothrombin Time (Protime)PT. 13.8 SECONDS (11.7-14.9)
[2021-03-23 12:30] LABS: Partial Thromboplast Time 36.9 Seconds (24.1-36.2)
[2021-03-23 12:46] LABS: ALB/GLOB Ratio 0.8 RATIO (0.9-2.4); AST(SGOT) 32 U/L (15-37); Alanine Aminotransfer ALT/SGPT 26 U/L (16-61); Albumin, Serum 3.5 g/dL (3.2-5.0); Alkaline Phosphatase 70 U/L (45-117); Anion Gap 7 (5-15); BUN 16 mg/dL (7-18); Calcium,Total 9.4 mg/dL (8.5-10.1); Chloride 102 mmol/L (98-107); Creatinine, Serum 1.45 mg/dL (0.70-1.30); EST Glomerular Filtration Rate 61 mL/min (>60); Est Glom Filt Rate - Afr Amer 74 mL/min (>60); Estimated Creatinine Clearance 83.25 ml/min; Globulin 4.4 g/dL (2.2-4.2); Glucose 126 mg/dL (74-106); Potassium 4.9 mmol/L (3.5-5.1); Protein, Total 7.9 g/dL (6.4-8.2); Sodium Level 137 mmol/L (136-145)
[2021-03-23 12:52] LABS: Lactic Acid 2.2 mmol/L (0.4-1.9)
[2021-03-23 16:19] LABS: Reflex Lactate? Y
--- NOTE | 2021-03-23 16:45 | ED.RN ---
ATTEMPTED TO DRAW SECOND LACTIC ACID WITHOUT SUCCESS. INFORMED AND IS OKAY WITH HOLD OFF. Kelly MEDEIROS RN [id number]
--- NOTE | 2021-03-23 17:25 | ED.RN ---
WAS ASKED TO CALL FOR A EMERGENT LIGHT AND SIRENS TO [facility] BY GROUND, CALLED PHYSICIANS THE ETA IS 20 MIN
== END 2021-03-23 18:01 | disposition short-term general hospital (02) ==
PROVIDERS: Emergency Provider Emergency Medicine
DX: A41.9 Sepsis, unspecified organism (principal); L02.413 Cutaneous abscess of right upper limb; I70.228 Atherosclerosis of native arteries of extremities with rest pain, other extremity; F15.90 Other stimulant use, unspecified, uncomplicated; F17.210 Nicotine dependence, cigarettes, uncomplicated
CPT/HCPCS: 73206; 80053; 83605; 85025; 85610; 85730; 87040; 87426; 96361; 96365; 96367; 96375; 96376; 99285; J7030; J7040; Q9967; A4216; J2405

== ENCOUNTER 2021-06-15 13:36 | Emergency (ER) | payer MEDICAID, SELFPAY ==
[2021-06-15 13:37] VITALS: BP 147/96; PULSE 90; RESP 16; TEMP 36.4; O2SAT 99; BMI 25.9
--- NOTE | 2021-06-15 14:10 | ED.RN ---
pt wanted to see who is being admitted for the same thing. pt was told that they would not be able to see each other and would probably be on different floors. pt got mad and left.
--- NOTE | 2021-06-15 14:52 | ED.RN ---
pt mad about not being able to see and be with . pt walked out of er. pt came back and walked out again. this time hro will make sure pt off property
== END 2021-06-15 15:17 | disposition left against medical advice (07) ==
LOC: ED 14:59
PROVIDERS: Emergency Provider Student in an Organized Health Care Education/Training Program; Visit Provider Student in an Organized Health Care Education/Training Program
DX: F19.19 Other psychoactive substance abuse with unspecified psychoactive substance-induced disorder (principal)
CPT/HCPCS: 99282

== ENCOUNTER 2021-06-16 15:00 | Inpatient (IN) | payer MEDICAID, SELFPAY ==
[2021-06-16 15:00] VITALS: BP 171/130; PULSE 103; RESP 18; TEMP 36.6; O2SAT 96; BMI 25.7
[2021-06-16 16:33] LABS: Absolute Lymphocyte Count 2.03 X10^3/uL (0.83-4.51); Basophil# 0.06 X10^3/uL; Basophil% 0.8 % (0-1); Eosinophil# 0.14 X10^3/uL; Eosinophils% 1.8 % (0-5); Hematocrit 40.5 % (40-54); Hemoglobin 13.8 g/dL (13.0-16.5); Lymphocyte # 2.03 X10^3/ul (0.83-4.51); Lymphocyte % 25.9 % (19-41); Mean Corp Hgb Conc 34.1 g/dL (32-36); Mean Corpuscular Hgb 28.5 pg (27.0-32.0); Mean Corpuscular Volume 83.7 fL (80-94); Mean Platelet Vol. 10.1 fl (6.2-12.0); Monocyte# 0.56 X10^3/uL; Monocyte% 7.2 % (0-10); NRBC Flagged by Analyzer 0 % (0-5); Neutrophil # 5.02 X10^3/uL (2.7-7.7); Platelet Count 270 K/mm3 (150-450); RBC Distribution Width CV 12.6 % (11.6-14.6); RBC Distribution Width SD 37.9 fl (35.1-43.9); Red Blood Count 4.84 M/mm3 (4.6-6.2); White Blood Count 7.8 K/mm3 (4.4-11.0)
[2021-06-16 16:55] LABS: Anion Gap 8 (5-15); BUN 16 mg/dL (7-18); BUN/Creat Ratio 13.8 RATIO (10-20); Calcium,Total 9.3 mg/dL (8.5-10.1); Chloride 107 mmol/L (98-107); Creatinine, Serum 1.16 mg/dL (0.70-1.30); EST Glomerular Filtration Rate 79 mL/min (>60); Est Glom Filt Rate - Afr Amer 96 mL/min (>60); Estimated Creatinine Clearance 104.06 ml/min; Glucose 129 mg/dL (74-106); Potassium 3.9 mmol/L (3.5-5.1); Sodium Level 142 mmol/L (136-145)
[2021-06-16 17:12] LABS: Alcohol, Blood (Medical)-Serum < 3.0 mg/dL
--- NOTE | 2021-06-16 17:52 | EDS_ITS ---
HPI History of Present Illness Chief Complaint: Substance Abuse Narrative Narrative: 30-year-old male presenting for opioid detox. He states he uses between a half a gram and a gram a day. Patient states he has detoxed multiple times. He has been using since he was 18. He states he does not drink alcohol. His last use was about 5 AM this morning. [facility] Medical History Denies previous medical history Substance abuse Home Medications NK 03/23/21 [History Last Taken Unknown] Allergy/AdvReac Type Severity Reaction Status Date / Time No Known Allergies Allergy Verified 06/16/21 15:03 Social History Smoking Status: Current every day smoker tobacco type: cigarettes substance use type: amphetamines and IV drugs ROS ROS ED Constitutional Constitutional ED: Denies chills or fever(s) Eyes Eyes: Denies blurry vision or diplopia ENT ENT ED: Denies rhinorrhea or sore throat Cardiovascular Cardiovascular: Denies chest pain or palpitations Respiratory/Chest Respiratory/Chest: Denies cough or dyspnea Gastrointestinal Gastrointestinal: Reports abdominal pain and nausea Genitourinary Genitourinary ED: Denies dysuria or urinary frequency Musculoskeletal Musculoskeletal: Reports myalgias; Denies arthralgias Integumentary Denies Abrasions or rash Neurologic Neurologic: Denies headache(s) or weakness EXAM Physical Exam Const Vital Signs: 06/16/21 15:00 06/16/21 18:00 Temperature 97.9 F Temperature Source Temporal Pulse Rate 103 H Respiratory Rate 18 22 H Blood Pressure 171/130 H Blood Pressure Mean 143 Pulse Ox 96 Oxygen Delivery Method Room Air General Appearance ED: NAD; Negative for pallor HEENT Reports moist mucous membranes atraumatic Eyes PERRL and EOMs intact bilaterally Neck supple Resp normal respiratory effort and clear to auscultation bilaterally Cardio regular rate and regular rhythm GI soft to palpation Neuro oriented x3 Sensorium / Orientation: alert Psych mental status grossly normal Skin General Skin Exam: Negative for jaundice or pallor MDM MDM MDM Narrative Medical decision making narrative: Patient presenting for opioid detox. It is noted that the patient was here yesterday and eloped twice. Apparently this was because he could not be with his significant other who is also hospitalized for detox. He presents today with last use at 5 AM this morning. I obtained blood work and this is all normal. EtOH negative. Urine drug seen is pending. Patient admitted to the hospitalist in stable condition. Impression: 1. Opioid abuse 2. Opioid detox Lab Data Labs: Laboratory Results - last 24 hr 06/16/21 06/16/21 06/16/21 16:25 16:25 16:25 WBC 7.8 RBC 4.84 Hgb 13.8 Hct 40.5 MCV 83.7 MCH 28.5 MCHC 34.1 RDW Std Deviation 37.9 RDW Coeff of [place] 12.6 Plt Count 270 MPV 10.1 Immature Gran % (Auto) 0.300 Neut % (Auto) 64.0 Lymph % (Auto) 25.9 [place] % (Auto) 7.2 Eos % (Auto) 1.8 Baso % (Auto) 0.8 Absolute Neuts (auto) 5.0 Absolute Lymphs (auto) 2.03 Nucleated RBC % 0 Sodium 142 Potassium 3.9 Chloride 107 Carbon Dioxide 27.0 Anion Gap 8 BUN 16 Creatinine 1.16 Estim Creat Clear Calc 104.06 Est GFR (MDRD) Af Amer 96 Est GFR (MDRD) Non-Af 79 BUN/Creatinine Ratio 13.8 Glucose 129 H Calcium 9.3 Ethyl Alcohol < 3.0 Discharge Plan Triage Chief Complaint: Substance Abuse ED Provider: Renaldo Callaway Dx/Rx/DC Orders Prescriptions: No Action NK RF: 0 Primary Care Provider: Care Physician,No Primary
[2021-06-16 18:00] VITALS: RESP 22
--- NOTE | 2021-06-16 18:15 | PCM.HP.STD ---
HPI - General General Date of Admission: 06/16/21 Date of Service: 06/16/21 Chief Complaint: Opioid withdrawal, seeking opioid detox HPI Narrative VENESSA MEDINA, is a 30 M who presents to the emergency room at [facility] requesting services for opioid detox, he last used yesterday, patient states he injects fentanyl, methamphetamines, and heroin. The last time he had an injection was around 5:00 this morning, he detoxed last about a year ago. Patient denies any alcohol use or other illicit drug use. Labs obtained reveal a normal CBC, patient's blood pressure was elevated at 171/130, pulse was 103, chemistry panel was unremarkable. Tox screen was not performed, patient's ethyl alcohol level was less than 3. Patient complains of severe nervousness along with restless legs, he also complains of nausea without vomiting. Patient will be admitted to PCU under MedSurg status, patient has relatives going through detox in the hospital now and he also has a girlfriend who is going through detox, due to this, patient will be admitted as a MedSurg patient to PCU. [facility] Medical History Denies previous medical history Substance abuse Home Medications NK 03/23/21 [History Last Taken Unknown] Allergy/AdvReac Type Severity Reaction Status Date / Time No Known Allergies Allergy Verified 06/16/21 15:03 Social History Smoking Status: Current every day smoker tobacco type: cigarettes substance use type: amphetamines and IV drugs ROS Constitutional Constitutional: Denies chills, fatigue, fever(s), malaise or weakness Eyes Eyes: Denies blurry vision, change in eye color, change in vision or discharge from eye(s) ENT HEENT: Denies abnormal hearing, dysphagia, ear pain, epistaxis or headache(s) Cardiovascular Cardiovascular: Denies chest pain, claudication, dyspnea on exertion, edema, lightheadedness, orthopnea or palpitations Respiratory/Chest Respiratory/Chest: Denies cough, dyspnea, excessive phlegm production, hemoptysis, productive cough, shortness of breath at rest or shortness of breath with exertion Gastrointestinal Gastrointestinal: Reports nausea; Denies abdominal pain, coffee ground emesis, constipation, diarrhea, dyspepsia, hematemesis, hematochezia, loose stools, melena or vomiting Genitourinary Genitourinary: Denies burning urination, difficulty urinating, dysuria, hematuria, nocturia or urinary frequency Musculoskeletal Musculoskeletal: Reports myalgias; Denies arthralgias, back pain, joint pain, joint stiffness or joint swelling Neurologic Neurologic: Reports abnormal movements; Denies abnormal gait, abnormal speech, confusion, disequilibrium or focal weakness Psychiatric Psychiatric: Reports anxiety and other Details: Patient complains of severe nervousness, he has severe restlessness in his legs with leg movements. Endocrine Endocrinology: Denies change in body appearance, cold intolerance, excessive sweating or heat intolerance Allergic/Immunologic Allergic/Immunologic: Denies hives, eczemia or asthma Vital Signs Vital Signs Vital Signs: 06/16/21 15:00 Temperature 97.9 F Temperature Source Temporal Pulse Rate 103 H Respiratory Rate 18 Blood Pressure 171/130 H Blood Pressure Mean 143 Pulse Ox 96 Oxygen Delivery Method Room Air Weight Weight: 86.183 kg Body Mass Index (BMI) 25.7 Physical Exam Const alert and oriented x3 Constitutional Narrative: Patient has frequent movements in his legs, he appears nervous and unwell General Appearance: cooperative, well kempt and well developed Orientation / Consciousness: awake, oriented to person, oriented to place and oriented to time HEENT normocephalic, head/scalp atraumatic, hearing grossly normal bilaterally and moist oral mucous membranes Eyes PERRL, EOMs intact bilaterally and conjunctivae normal Neck nuchal rigidity, supple, no JVD, thyroid normal and no carotid bruits General: trachea midline Resp normal respiratory effort, no retractions, no use of accessory muscles and clear to auscultation bilaterally Auscultation: Negative for rales, rhonchi or wheezes Cardio regular rate, regular rhythm, S1 normal heart sound, S2 normal heart sound, no murmurs, no rub and no gallops Cardio Narrative: Patient is tachycardic GI normal to inspection, nondistended, normoactive bowel sounds, soft to palpation, non-tender and non-distended Extremity normal to inspection and no clubbing, cyanosis or edema Skin no rashes or lesions noted Skin Narrative: Patient has track rascon over both his arms, there is no discharge from any of these areas General Skin Exam: no breakdown Neuro oriented x3, CN's II-XII intact bilaterally, no focal motor deficits and no sensory deficits noted Neuro Narrative: Speech is rapid Sensorium / Orientation: awake and alert Psych thought process normal Psych Narrative: Patient appears very nervous and is moving his legs several times during the time my examination. Mood & Affect: anxious Results Lab / Micro Data Result Diagrams: 06/16/21 16:25 06/16/21 16:25 Labs: Laboratory Results - last 24 hr 06/16/21 16:25: WBC 7.8, RBC 4.84, Hgb 13.8, Hct 40.5, MCV 83.7, MCH 28.5, MCHC 34.1, RDW Std Deviation 37.9, RDW Coeff of Ald[place] 12.6, Plt Count 270, MPV 10.1, Immature Gran % (Auto) 0.300, Neut % (Auto) 64.0, Lymph % (Auto) 25.9, [place] % (Auto) 7.2, Eos % (Auto) 1.8, Baso % (Auto) 0.8, Absolute Neuts (auto) 5.0, Absolute Lymphs (auto) 2.03, Nucleated RBC % 0 06/16/21 16:25: Sodium 142, Potassium 3.9, Chloride 107, Carbon Dioxide 27.0, Anion Gap 8, BUN 16, Creatinine 1.16, Estim Creat Clear Calc 104.06, Est GFR (MDRD) Af Amer 96, Est GFR (MDRD) Non-Af 79, BUN/Creatinine Ratio 13.8, Glucose 129 H, Calcium 9.3 06/16/21 16:25: Ethyl Alcohol < 3.0 Assessment & Plan Assessment/Plan (1) Opioid withdrawal: PLAN: 1. Acute opioid withdrawal-patient will be admitted to PCU under MedSurg status, he will be started on the opiate withdrawal protocol including Subutex. 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 Charges/Coding Visit Charges Inpatient E&M: 18463 Init Hosp L3
--- NOTE | 2021-06-16 18:17 | ED.RN ---
Clothing, along with cell phone, bagged and labeled. Detox agreement signed.
[2021-06-16 19:08] VITALS: BMI 25.9
[2021-06-16 19:56] VITALS: BP 125/69; PULSE 77; RESP 15; TEMP 36.7; O2SAT 100
[2021-06-16 20:12] VITALS: PULSE 77; RESP 15; O2SAT 100
[2021-06-16] MEDS: Gabapentin 300 MG Capsule PO (20:32)
[2021-06-16] MEDS: cloNIDine HCl 0.1 MG Tablet PO (20:32)
[2021-06-16] MEDS: Acetaminophen 500 MG Tablet PO (20:32)
[2021-06-16] MEDS: Buprenorphine HCl 2 MG TAB.SUBL SL (21:18)
[2021-06-17 00:01] VITALS: BP 121/65; PULSE 70; RESP 15; TEMP 36.7; O2SAT 98
[2021-06-17 03:00] VITALS: BP 108/51; PULSE 61; RESP 15; TEMP 36.6; O2SAT 100
[2021-06-17] MEDS: Buprenorphine HCl 2 MG TAB.SUBL SL ×3 (06:02→21:20)
[2021-06-17 10:25] VITALS: BP 112/73; PULSE 90; RESP 16; TEMP 36.3; O2SAT 98
[2021-06-17] MEDS: hydrOXYzine PAM 25 MG Capsule 50 MG PO (10:33)
--- NOTE | 2021-06-17 13:17 | PN.HOSP_ITS ---
Subjective Subjective Doing well, no issues overnight. He is having more anxiety today but he states that he is gone through withdrawal before and understands that usually day 2 can be rough. He has a Cina score of 9 Objective Data Objective Data Vital Signs: Vital Signs Temp Pulse Resp BP Pulse Ox 97.4 F L 90 16 112/73 98 06/17/21 10:25 06/17/21 10:25 06/17/21 10:25 06/17/21 10:25 06/17/21 10:25 Oxygen Delivery Method Room Air Weight: 191 lb 5.78 oz Body Mass Index (BMI) 25.9 Intake & Output: Intake and Output for Last 24 Hours 06/16/21 06/17/21 06/18/21 03:59 03:59 03:59 Intake Total 400 / 400 200 / 200 Balance 400 / 400 200 / 200 Medical Nutrition Assessment Dietitian: Malnutrition Criteria Met Start: 06/17/21 12:54 Freq: Status: Active Protocol: Document 06/17/21 12:54 [facility]A (Rec: 06/17/21 12:54 [facility] [id number]) Nutrition Malnutrition Evidence of Malnutrition Exists Yes Malnutrition (severe): Social/Behavioral/ Environmental Evidenced By Weight Loss (Severe),Physical Changes (Severe) Clinical Problem Chronic Disease or Condition Related Malnutrition Etiology related to drug abuse and inability to consume adequate nutrition to meet est nutritional needs when using Signs/Symptoms as evidenced by 13.1% wt loss x 5 mo and fat/muscle loss in face/clavicle regions and upper body. Status Active Problem Recommendation Dietitian Recommendations/Changes Will continue regular diet as ordered Will order ONS w/ medpass 4x/ day for increased nutrition if consumed. Lab / Micro Data Result Diagrams: 06/16/21 16:25 06/16/21 16:25 Labs: Laboratory Results - last 24 hr 06/16/21 16:25: WBC 7.8, RBC 4.84, Hgb 13.8, Hct 40.5, MCV 83.7, MCH 28.5, MCHC 34.1, RDW Std Deviation 37.9, RDW Coeff of Alden 12.6, Plt Count 270, MPV 10.1, Immature Gran % (Auto) 0.300, Neut % (Auto) 64.0, Lymph % (Auto) 25.9, [place] % (Auto) 7.2, Eos % (Auto) 1.8, Baso % (Auto) 0.8, Absolute Neuts (auto) 5.0, Absolute Lymphs (auto) 2.03, Nucleated RBC % 0 06/16/21 16:25: Sodium 142, Potassium 3.9, Chloride 107, Carbon Dioxide 27.0, Anion Gap 8, BUN 16, Creatinine 1.16, Estim Creat Clear Calc 104.06, Est GFR (MDRD) Af Amer 96, Est GFR (MDRD) Non-Af 79, BUN/Creatinine Ratio 13.8, Glucose 129 H, Calcium 9.3 06/16/21 16:25: Ethyl Alcohol < 3.0 Physical Exam Const alert, oriented x3 and no apparent distress General Appearance: cooperative HEENT normocephalic and moist oral mucous membranes Eyes PERRL, EOMs intact bilaterally and conjunctivae normal Neck supple and no JVD Resp normal respiratory effort, no retractions, no use of accessory muscles and clear to auscultation bilaterally Auscultation: Negative for crackles, rales, rhonchi or wheezes Cardio regular rate, regular rhythm, S1 normal heart sound, S2 normal heart sound and no murmurs GI soft to palpation, non-tender and non-distended; Negative for hepatosplenomegaly Extremity no clubbing, cyanosis or edema Skin no rashes or lesions noted Neuro no focal motor deficits and no sensory deficits noted Psych Mood & Affect: anxious Assessment & Plan Assessment/Plan (1) Opioid withdrawal: PLAN: 1. Acute opiate withdrawal/tobacco abuse ? Continue with the opiate withdrawal protocol ? He has an inpatient rehab that can pick him up he states when he is ready for discharge ? Encouraged tobacco cessation, continue with the nicotine patch DVT: Ambulation Charges/Coding Visit Charges Inpatient E&M: 58346 Subs Hosp L2
--- NOTE | 2021-06-17 15:33 | ADDICTION ---
This senior mortgage underwriter met with PT to conduct ASAM, MSE, AUDIT assessments and to plan for d/c. PT A+Ox4 and participated actively. All assessments completed and placed in PT's chart. PT plans to f/u with [facility] for recovery services. PT did not indicate a need for transportation post d/c from [facility], he reported [facility] will transport him.
[2021-06-17 17:00] VITALS: BP 114/79; PULSE 64; RESP 15; TEMP 36.6; O2SAT 99
[2021-06-17 21:19] VITALS: BP 102/88; PULSE 82; RESP 16; TEMP 36.6; O2SAT 99
--- NOTE | 2021-06-17 22:57 | PCS.PANDOC ---
PANDEMIC DOCUMENTATION INITIATED: Date: 01/14/2021 Time: 190
[2021-06-18 03:30] VITALS: BP 136/86; PULSE 68; RESP 16; TEMP 36.7; O2SAT 100
[2021-06-18] MEDS: Buprenorphine HCl 2 MG TAB.SUBL SL ×2 (05:10→12:27)
[2021-06-18 08:53] VITALS: BP 123/76; PULSE 92; RESP 18; TEMP 36.6; O2SAT 98
--- NOTE | 2021-06-18 10:15 | PN.HOSP_ITS ---
Subjective Subjective Doing well, no issues overnight. Resting comfortably. A Cina score of 0 this morning Objective Data Objective Data Vital Signs: Vital Signs Temp Pulse Resp BP Pulse Ox 97.8 F 92 18 123/76 H 98 06/18/21 08:53 06/18/21 08:53 06/18/21 08:53 06/18/21 08:53 06/18/21 08:53 Oxygen Delivery Method Room Air Weight: 191 lb 5.78 oz Body Mass Index (BMI) 25.9 Intake & Output: Intake and Output for Last 24 Hours 06/17/21 06/18/21 06/19/21 03:59 03:59 03:59 Intake Total 400 / 400 640 / 640 240 / 240 Balance 400 / 400 640 / 640 240 / 240 Medical Nutrition Assessment Dietitian: Malnutrition Criteria Met Start: 06/17/21 12:54 Freq: Status: Active Protocol: Document 06/17/21 12:54 [facility]OHA (Rec: 06/17/21 12:54 [facility] [id number]) Nutrition Malnutrition Evidence of Malnutrition Exists Yes Malnutrition (severe): Social/Behavioral/ Environmental Evidenced By Weight Loss (Severe),Physical Changes (Severe) Clinical Problem Chronic Disease or Condition Related Malnutrition Etiology related to drug abuse and inability to consume adequate nutrition to meet est nutritional needs when using Signs/Symptoms as evidenced by 13.1% wt loss x 5 mo and fat/muscle loss in face/clavicle regions and upper body. Status Active Problem Recommendation Dietitian Recommendations/Changes Will continue regular diet as ordered Will order ONS w/ medpass 4x/ day for increased nutrition if consumed. Lab / Micro Data Result Diagrams: 06/16/21 16:25 06/16/21 16:25 Physical Exam Narrative Const alert, oriented x3 and no apparent distress General Appearance: cooperative HEENT normocephalic and moist oral mucous membranes Eyes PERRL, EOMs intact bilaterally and conjunctivae normal Neck supple and no JVD Resp normal respiratory effort, no retractions, no use of accessory muscles and clear to auscultation bilaterally Auscultation: Negative for crackles, rales, rhonchi or wheezes Cardio regular rate, regular rhythm, S1 normal heart sound, S2 normal heart sound and no murmurs GI soft to palpation, non-tender and non-distended; Negative for hepatosplenomegaly Extremity no clubbing, cyanosis or edema Skin no rashes or lesions noted Neuro no focal motor deficits and no sensory deficits noted Psych Mood & Affect: Normal affect, appropriate Assessment & Plan Assessment/Plan (1) Opioid withdrawal: PLAN: 1. Acute opiate withdrawal/tobacco abuse ? Continue with the opiate withdrawal protocol ? He has an inpatient rehab that can pick him up he states when he is ready for discharge ? Encouraged tobacco cessation, continue with the nicotine patch DVT: Ambulation Charges/Coding Visit Charges Inpatient E&M: 67963 Subs Hosp L2
[2021-06-18 12:30] VITALS: BP 105/90; PULSE 89; RESP 18; TEMP 36.6; O2SAT 97
--- NOTE | 2021-06-18 16:37 | NURSING ---
Shoshana completed on pt elopement. notified.
== END 2021-06-18 18:22 | disposition left against medical advice (07) | DRG 770 ==
LOC: ED 17:05 → PCU 19:05
PROVIDERS: Admitting Provider Internal Medicine; Emergency Provider Student in an Organized Health Care Education/Training Program; Visit Provider Family Medicine
DX: F11.23 Opioid dependence with withdrawal (principal); E43 Unspecified severe protein-calorie malnutrition; F15.10 Other stimulant abuse, uncomplicated; F17.210 Nicotine dependence, cigarettes, uncomplicated; Z68.25 Body mass index [BMI] 25.0-25.9, adult
CPT/HCPCS: 36415; 80048; 82077; 85025; 99281; 99282; 99406

== ENCOUNTER 2021-10-12 22:08 | Observation (INO) | payer MEDICAID, SELFPAY ==
[2021-10-12 22:09] VITALS: BP 141/99; PULSE 108; RESP 18; TEMP 36.9; O2SAT 98; BMI 27.1
[2021-10-12 22:36] VITALS: BP 141/99; PULSE 108; RESP 18; TEMP 36.9; O2SAT 98
--- NOTE | 2021-10-12 22:38 | HP.PCM.HOS_ITS ---
HPI - General General Date of Admission: 10/12/21 HPI Narrative VENESSA MEDINA, is a 31 M with a significant history of IV drug use with previous abscesses who presents to the emergency department for desire for detoxification. Patient reports using heroin, fentanyl and methamphetamine. He shoots all these drugs. Fentanyl/heroin use: He started using at the age of 18. He uses 2 to 3 g/day. He has been using every day. Methamphetamine use: He began using methamphetamine the age of 19. He uses about 1 to 2 g/day Last time he used all 3 drugs was about 2 to 3 hours before presentation. He is not in any withdrawal symptoms at this time. He denies any other symptoms at th is time. Patient came in for joint detoxification with his fianc?. Patient is supposed to going to [facility] on Thursday morning 10/15/2021. Patient report that he was in the hospital for detoxification program in June 2021. Upon discharge she stayed sober for about 3 weeks. [facility] Medical History Denies previous medical history Substance abuse Home Medications NK 03/23/21 [History Last Taken Unknown] Allergy/AdvReac Type Severity Reaction Status Date / Time No Known Allergies Allergy Verified 10/12/21 22:11 Family History Other Arthritis Diabetes Hypertension Surgical History History of eye surgery Social History Smoking Status: Current every day smoker tobacco type: cigarettes substance use type: amphetamines and IV drugs ROS ROS Narrative Pertinent positives and pertinent negatives as noted in HPI. All other systems were reviewed and are negative. Vital Signs Vital Signs Vital Signs: 10/12/21 22:09 Temperature 98.4 F Temperature Source Temporal Pulse Rate 108 H Respiratory Rate 18 Blood Pressure 141/99 H Blood Pressure Mean 113 Pulse Ox 98 Oxygen Delivery Method Room Air Weight Weight: 90.718 kg Body Mass Index (BMI) 27.1 Physical Exam Narrative Physical exam: General: Well-nourished, well-developed. Head: Normocephalic, atraumatic, no tenderness Eyes: Vision is grossly intact. EOMI ENT, no trauma, moist mucous membranes, no rhinorrhea Neck: Nontender, full range of motion, no spinal tenderness, deformities, step- off CVS: Regular rate and rhythm. S1-S2 present. No murmur, gallop or rub. Respiratory : clear to auscultation bilaterally, chest wall nontender, no wheezing Abdomen: Soft, nontender, nondistended, normal bowel sounds, no masses : Deferred Back: Nontender, no CVA tenderness, no midline spinal tenderness, deformities, step-offs Extremities: Nontender full range of motion, no trauma Skin: Needle track rascon and swelling on bilateral upper extremities. Some petechial rash on upper back. Normal color, no trauma. Neuro: Alert, oriented, cranial nerves II through XII grossly intact. Psychiatry: Normal mood. Normal affect. Not depressed. Not anxious. Assessment & Plan Assessment/Plan (1) Desire for detoxification: (2) Opiate addiction: QUALIFIERS: Substance use status: uncomplicated Qualified Code(s): F11.20 - Opioid dependence, uncomplicated PLAN: Opioid dependence and desire for detoxification Patient be started on Subutex and other adjunctive medications: Gabapentin as needed; dicyclomine as needed; Vistaril as needed; methocarbamol as needed; clonidine as needed; Imodium as needed; trazodone as needed and Zofran as needed. Monitor COWS and CINA score Methamphetamine use Counseled. Symptomatic treatment as above. Tobacco abuse Counseled Nicotine patch and gum prescribed. DVT prophylaxis Low risk Encourage to ambulate Charges/Coding Visit Charges Inpatient E&M: 15648 Init Hosp L2
--- NOTE | 2021-10-12 22:42 | EDS_ITS ---
HPI History of Present Illness Chief Complaint: Substance Abuse Informant: patient Narrative Narrative: Patient presents requesting detox from heroin, fentanyl and methamphetamines. He started using heroin about the age of 18. He started using meth a year later. He has been through detox twice in the past. Both he states were here. The most recent were few months ago. He stayed clean for about 3 weeks afterwards. He has an appointment with [facility] on Thursday morning and he was told to come in and get detox before that. He denies any physical complaints at this time. He does get a lot of symptoms with withdrawal but he just used about 2 to 3 hours ago and does not feel these yet. [facility] Medical History Denies previous medical history Substance abuse Home Medications NK 03/23/21 [History Last Taken Unknown] Allergy/AdvReac Type Severity Reaction Status Date / Time No Known Allergies Allergy Verified 10/12/21 22:11 Social History Smoking Status: Current every day smoker tobacco type: cigarettes substance use type: amphetamines and IV drugs ROS ROS ED ROS Narrative Patient does get chills, sweats, nausea, diarrhea, anxiety when he is not using but he is not yet having the symptoms. Constitutional Constitutional ED: Denies chills or fever(s) Eyes Eyes: Denies change in vision ENT ENT ED: Denies rhinorrhea Cardiovascular Cardiovascular: Denies chest pain Respiratory/Chest Respiratory/Chest: Denies dyspnea Gastrointestinal Gastrointestinal: Denies diarrhea, nausea or vomiting Genitourinary Genitourinary ED: Denies dysuria Musculoskeletal Musculoskeletal: Denies arthralgias or myalgias Integumentary Reports other Details: Patient has track rascon. He has had abscesses but does not have any active ones. ; Denies rash Neurologic Neurologic: Denies headache(s) Psychiatric Psychiatric: Denies suicidal ideation or suicidal thoughts Endocrine Endocrinology: Denies polydipsia or polyuria Allergic/Immunologic Allergic/Immunologic ED: Denies urticaria EXAM Physical Exam Const Vital Signs: 10/12/21 22:09 Temperature 98.4 F Temperature Source Temporal Pulse Rate 108 H Respiratory Rate 18 Blood Pressure 141/99 H Blood Pressure Mean 113 Pulse Ox 98 Oxygen Delivery Method Room Air Positive well nourished and well developed General Appearance ED: well developed and NAD; Negative for cyanotic or diaphoretic HEENT Reports moist mucous membranes Eyes Eyes Narrative: Pupils are approximately 2-1/2 mm bilateral and equal. General Eye ED: Negative for pale conjunctiva Neck no JVD Resp normal respiratory effort and clear to auscultation bilaterally Cardio regular rhythm and no murmurs Rate: tachycardic GI normal to inspection, nondistended, normoactive bowel sounds and non-tender Palpation: soft Back/Spine no CVA tenderness Extremity Extremity Narrative: Patient has multiple track rascon on both arms. He has some scars from prior abscesses. However, no sign of any acute abscesses or inflamed areas of significance. Neuro oriented x3 Sensorium / Orientation: alert Psych mental status grossly normal Skin Skin Narrative: See above. MDM MDM MDM Narrative Medical decision making narrative: Patient will be admitted for detox. He has no physical complaints. Case discussed with hospitalist. No labs requested acutely. Discharge Plan Triage Chief Complaint: Substance Abuse ED Provider: Jg Palacios Dx/Rx/DC Orders Clinical Impression: Opiate addiction, Opioid withdrawal, Desire for detoxification, Methamphetamine abuse Primary Care Provider: Care Physician,No Primary Disposition Disposition: Acute Care Hospital [facility]
[2021-10-12 23:08] VITALS: BMI 25.2
[2021-10-12 23:22] VITALS: BP 139/80; PULSE 85; RESP 18; TEMP 36.7; O2SAT 97
[2021-10-12] MEDS: cloNIDine HCl 0.1 MG Tablet PO (23:44)
[2021-10-12] MEDS: Methocarbamol 750 MG Tablet 1500 MG PO (23:44)
[2021-10-12] MEDS: Buprenorphine HCl 2 MG TAB.SUBL 4 MG SL (23:44)
--- NOTE | 2021-10-13 01:01 | NURSING ---
Addendum entered by Maria A Garza 10/13/21 01:18: Pt ate, given medications, showered, x1 XL BM clogging toilet, left AMA. Physician and fun house attendant made aware. Original Note: pt agitated up walking halls trying to find his way out to leave. Pt asked to stop and sign an AMA paper; pt reluctant at first but signed; pt left floor at 0055
--- NOTE | 2021-10-13 01:14 | PCM.PN.BLA ---
Progress Note Notified by nursing team that patient is leaving AMA.
== END 2021-10-13 00:55 | disposition left against medical advice (07) ==
LOC: ED 22:42 → MS3 22:50
PROVIDERS: Admitting Provider Hospitalist; Emergency Provider Emergency Medicine; Visit Provider Hospitalist
DX: F11.23 Opioid dependence with withdrawal (principal); F17.210 Nicotine dependence, cigarettes, uncomplicated; F15.90 Other stimulant use, unspecified, uncomplicated
CPT/HCPCS: 99218; 99283; G0378

== ENCOUNTER 2021-10-13 08:17 | Emergency (ER) | payer MEDICAID, SELFPAY ==
[2021-10-13 08:17] VITALS: BP 132/89; PULSE 115; RESP 16; TEMP 36.8; O2SAT 97; BMI 25.7
--- NOTE | 2021-10-13 08:45 | EX.ED.DYSGE1 ---
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 Preethi Rubalcava MD) Anxiety Denies previous medical history Substance abuse Home Medications NK 03/23/21 [History Last Taken Unknown] Allergy/AdvReac Type Severity Reaction Status Date / Time No Known Allergies Allergy Verified 10/13/21 08:17 Family History Other Arthritis Diabetes Hypertension Surgical History History of eye surgery Social History Smoking Status: Current every day smoker tobacco type: cigarettes substance use type: amphetamines and IV drugs ROS ROS ED ROS Narrative He is generally feeling nervous no specific complaints Constitutional Constitutional ED: Reports subjective, sweats and other; Denies chills, fever(s) or weight loss Eyes Eyes: Denies blurry vision or change in vision ENT ENT ED: Denies ear pain Cardiovascular Cardiovascular: Denies chest pain or palpitations Respiratory/Chest Respiratory/Chest: Denies dyspnea Gastrointestinal Gastrointestinal: Denies abdominal pain, nausea or vomiting Genitourinary Genitourinary ED: Denies dysuria or hematuria Musculoskeletal Musculoskeletal: Denies arthralgias or myalgias Integumentary Reports rash; Denies abscess Neurologic Neurologic: Denies weakness Psychiatric Psychiatric: Denies anxiety or depression Endocrine Endocrinology: Denies polydipsia or polyuria Allergic/Immunologic Allergic/Immunologic ED: Denies urticaria EXAM Physical Exam Narrative Exam Narrative: He is awake and alert no distress head neck chest abdomen unremarkable he has injection rascon to the upper extremities that show no signs of infection none appear new Const Vital Signs: 10/13/21 08:17 Temperature 98.2 F Temperature Source Temporal Pulse Rate 115 H Respiratory Rate 16 Blood Pressure 132/89 H Blood Pressure Mean 103 Pulse Ox 97 Oxygen Delivery Method Room Air Positive well developed General Appearance ED: well developed HEENT Reports normocephalic Negative for trauma Eyes EOMs intact bilaterally Neck supple Chest Wall inspection of chest normal Resp normal respiratory effort Cardio regular rate GI non-tender and non-distended Back/Spine Back/Spine Narrative: unremarkable Extremity normal to inspection Neuro oriented x3 and CN's II-XII intact bilaterally Sensorium / Orientation: alert Psych mental status grossly normal Skin no rashes or lesions noted MDM MDM MDM Narrative Medical decision making narrative: His vital signs are unremarkable he left the hospital about 7 hours ago, he has not used any drugs for at least a few days by his history no signs of acute issues other than his very nervous about his desire to be readmitted so he can [facility] at this time we have paged the hospitalist to discuss this issue and the potential for readmission per hospital protocol Spoke with the hospitalist per hospital protocol given that the patient left AM recently, apparently also left AMA in June the patient cannot be readmitted for 30 days discussed with the patient he understands that he has been sober for a number of days he understands that he needs to continue his sobriety through Thursday and then present for the [facility] assessment on thursday as scheduled and this should not affect his assessment and admission to the [facility] he has caregivers with [facility] who he is been instructed to contact for further information and guidance he expressed understanding of the above and will follow up with [facility] Discharge Plan Triage Chief Complaint: Substance Abuse ED Provider: Preethi Rubalcava Dx/Rx/DC Orders Clinical Impression: Opioid withdrawal, Desire for detoxification Instructions: Addiction: Getting Help Prescriptions: No Action NK RF: 0 Primary Care Provider: Care Physician,No Primary Referrals: Care Physician,No Primary [Primary Care Provider] - Activity Restrictions/Additional Instructions: Contact [facility] for further guidance and instructions, continue your sobriety and present to [facility] for your Thursday assessment Disposition Disposition: Home, Self Care Discharge Date/Time: 10/13/21 09:25
--- NOTE | 2021-10-13 09:25 | NURSING ---
Pt instructed to wait to leave until discharge instructions complete. Pt refused to wait for dc instructions and left. Attempted to give patient resources but pt denied.
== END 2021-10-13 09:25 | disposition home or self-care (01) ==
PROVIDERS: Emergency Provider Emergency Medicine; Visit Provider Emergency Medicine
DX: F11.23 Opioid dependence with withdrawal (principal); F17.210 Nicotine dependence, cigarettes, uncomplicated
CPT/HCPCS: 99282

== ENCOUNTER 2022-02-28 09:15 | Inpatient (IN) | payer MEDICAID, SELFPAY ==
[2022-02-28 09:17] VITALS: BP 144/94; PULSE 98; RESP 18; TEMP 36.6; O2SAT 97; BMI 25.4
--- NOTE | 2022-02-28 09:54 | EX.ED.SAOD ---
HPI History of Present Illness Chief Complaint: Substance Abuse Informant: patient Onset/Context/Timing Onset: Yesterday Context: Gradual Onset Timing: Continuous Quality: Nauseated, shaky Location: Generalized Worsened by: Nothing Relieved by: Nothing Associated Symptoms Associated Symptoms: Positive for tremor and palpatations; Negative for vomiting*, diarrhea*, fever*, rash*, seizure, change in mental status, trauma, suicidal ideation or homicidal ideation Narrative Narrative: Patient presents requesting detox from heroin, fentanyl, and methamphetamines. Patient states his last use was approximately 11 PM last night. Patient states he normally uses 1.5 g/day. Patient states the heroin and fentanyl was mixed together. Patient states he went through detox approximately 4-5 months ago but signed out AGAINST MEDICAL ADVICE and started using right away. Patient states she is scheduled to go to [facility]. Patient states that he was told to come in and to be detoxed before he can go to [facility]. Patient admits to some nausea but denies any vomiting. Patient admits to some subjective chills. [facility] Medical History Anxiety Denies previous medical history Substance abuse Home Medications NK 03/23/21 [History Last Taken Unknown] Allergy/AdvReac Type Severity Reaction Status Date / Time No Known Allergies Allergy Verified 02/28/22 09:17 Family History Other Arthritis Diabetes Hypertension Surgical History History of eye surgery Social History Smoking Status: Current every day smoker tobacco type: cigarettes substance use type: amphetamines and IV drugs ROS ROS ED Constitutional Constitutional ED: Reports chills and subjective; Denies fever(s) Eyes Eyes: Denies blurry vision or change in vision ENT ENT ED: Denies rhinorrhea or sore throat Cardiovascular Cardiovascular: Reports palpitations and racing heartbeat; Denies chest pain Respiratory/Chest Respiratory/Chest: Denies cough or dyspnea Gastrointestinal Gastrointestinal: Reports nausea; Denies vomiting Genitourinary Genitourinary ED: Denies dysuria or hematuria Musculoskeletal Musculoskeletal: Denies back pain or neck pain Integumentary Denies abscess or rash Neurologic Neurologic: Denies headache(s) or weakness Psychiatric Psychiatric: Denies suicidal ideation or suicidal thoughts Allergic/Immunologic Allergic/Immunologic ED: Denies mouth swelling or urticaria EXAM Physical Exam Const Vital Signs: 02/28/22 09:17 Temperature 97.8 F Temperature Source Temporal Pulse Rate 98 Respiratory Rate 18 Blood Pressure 144/94 H Blood Pressure Mean 110 Pulse Ox 97 Oxygen Delivery Method Room Air Positive well nourished and well developed General Appearance ED: well developed and NAD HEENT Reports moist mucous membranes Neck supple and no JVD Resp normal respiratory effort and clear to auscultation bilaterally Cardio regular rate, regular rhythm and no murmurs GI normal to inspection, nondistended, normoactive bowel sounds and non-tender Palpation: soft Extremity normal to inspection General Extremety ED: Negative for edema or tenderness General Extremity: Negative for edema Neuro oriented x3, CN's II-XII intact bilaterally and no sensory deficits noted Sensorium / Orientation: alert Motor Exam: strength 5/5 throughout Psych mental status grossly normal Skin no rashes or lesions noted Skin Narrative: There are track rascon noted on the forearms and antecubital fossa bilaterally. There is no evidence of any abscess. There is no erythema or warmth. There is no induration. There is no discharge or drainage. MDM MDM MDM Narrative Medical decision making narrative: Basic labs were obtained. CBC was within normal limits. Comprehensive metabolic profile was within normal limits. Serum alcohol level was less than 3. Urine tox screen was ordered and is pending. Case was discussed with the hospitalist. He will admit the patient to his service. Patient understood and was agreeable with the plan. All questions were answered. Lab Data Attestation: I reviewed the patient's lab results. Labs: Laboratory Results - last 24 hr 02/28/22 02/28/22 02/28/22 09:35 09:35 09:35 WBC 8.1 RBC 4.83 Hgb 14.8 Hct 41.2 MCV 85.3 MCH 30.6 MCHC 35.9 RDW Std Deviation 37.9 RDW Coeff of Ald[place] 12.2 Plt Count 241 MPV 11.0 Immature Gran % (Auto) 0.100 Neut % (Auto) 46.2 L Lymph % (Auto) 39.7 [place] % (Auto) 5.9 Eos % (Auto) 7.5 H Baso % (Auto) 0.6 Absolute Neuts (auto) 3.7 Absolute Lymphs (auto) 3.21 Nucleated RBC % 0 Sodium 143 Potassium 3.6 Chloride 107 Carbon Dioxide 30.0 Anion Gap 6 BUN 16 Creatinine 1.09 Estim Creat Clear Calc 109.76 Est GFR (MDRD) Af Amer 102 Est GFR (MDRD) Non-Af 85 BUN/Creatinine Ratio 14.7 Glucose 99 Calcium 8.9 Total Bilirubin 0.50 AST 14 L ALT 23 Alkaline Phosphatase 62 Total Protein 7.2 Albumin 3.6 Globulin 3.6 Albumin/Globulin Ratio 1.0 Ethyl Alcohol < 3.0 Discharge Plan Triage Chief Complaint: Substance Abuse ED Provider: Bernardo Daley Dx/Rx/DC Orders Clinical Impression: Opiate addiction, Opioid withdrawal, Desire for detoxification Prescriptions: No Action NK Primary Care Provider: Care Physician,No Primary Referrals: Care Physician,No Primary [Primary Care Provider] - Disposition Disposition: Acute Care [facility]
[2022-02-28 10:12] LABS: Absolute Lymphocyte Count 3.21 X10^3/uL (0.83-4.51); Absolute Neutrophil Count 3.7 X10^3/uL (2.0-7.7); Basophil# 0.05 X10^3/uL; Basophil% 0.6 % (0-1); Eosinophil# 0.61 X10^3/uL; Eosinophils% 7.5 % (0-5); Hematocrit 41.2 % (40-54); Hemoglobin 14.8 g/dL (13.0-16.5); Lymphocyte # 3.21 X10^3/ul (0.83-4.51); Lymphocyte % 39.7 % (19-41); Mean Corp Hgb Conc 35.9 g/dL (32-36); Mean Corpuscular Hgb 30.6 pg (27.0-32.0); Mean Corpuscular Volume 85.3 fL (80-94); Monocyte# 0.48 X10^3/uL; Monocyte% 5.9 % (0-10); NRBC Flagged by Analyzer 0 % (0-5); Neutrophil # 3.73 X10^3/uL (2.7-7.7); Neutrophil % 46.2 % (47-70); Platelet Count 241 K/mm3 (150-450); RBC Distribution Width CV 12.2 % (11.6-14.6); RBC Distribution Width SD 37.9 fl (35.1-43.9); Red Blood Count 4.83 M/mm3 (4.6-6.2); White Blood Count 8.1 K/mm3 (4.4-11.0)
[2022-02-28 10:35] LABS: Alcohol, Blood (Medical)-Serum < 3.0 mg/dL
[2022-02-28 10:39] LABS: AST(SGOT) 14 U/L (15-37); Alanine Aminotransfer ALT/SGPT 23 U/L (16-61); Albumin, Serum 3.6 g/dL (3.2-5.0); Alkaline Phosphatase 62 U/L (45-117); Anion Gap 6 (5-15); BUN 16 mg/dL (7-18); BUN/Creat Ratio 14.7 RATIO (10-20); Calcium,Total 8.9 mg/dL (8.5-10.1); Chloride 107 mmol/L (98-107); Creatinine, Serum 1.09 mg/dL (0.70-1.30); EST Glomerular Filtration Rate 85 mL/min (>60); Est Glom Filt Rate - Afr Amer 102 mL/min (>60); Estimated Creatinine Clearance 109.76 ml/min; Globulin 3.6 g/dL (2.2-4.2); Glucose 99 mg/dL (74-106); Potassium 3.6 mmol/L (3.5-5.1); Protein, Total 7.2 g/dL (6.4-8.2); Sodium Level 143 mmol/L (136-145)
--- NOTE | 2022-02-28 10:44 | PCM.HP.STD ---
HPI - General General Date of Admission: 02/28/22 HPI Narrative VENESSA MEDINA, is a 31 M who presents to the hospital requesting opiate detox. His last use was last night. He did present several months ago but left AMA at this time says he wants to complete detox and has [facility] bed [facility]. He does appear anxious and tremulous. He is little bit tachycardic [facility] Medical History Anxiety Denies previous medical history Substance abuse Home Medications NK 03/23/21 [History Last Taken Unknown] Allergy/AdvReac Type Severity Reaction Status Date / Time No Known Allergies Allergy Verified 02/28/22 09:17 Family History Other Arthritis Diabetes Hypertension Surgical History History of eye surgery Social History Smoking Status: Current every day smoker tobacco type: cigarettes substance use type: amphetamines and IV drugs ROS Constitutional Constitutional: Denies chills, fatigue, fever(s) or malaise Eyes Eyes: Denies blurry vision ENT HEENT: Denies headache(s) or nasal discharge Cardiovascular Cardiovascular: Denies chest pain, dyspnea on exertion or syncope Respiratory/Chest Respiratory/Chest: Denies cough, shortness of breath at rest or shortness of breath with exertion Gastrointestinal Gastrointestinal: Denies constipation, diarrhea, nausea or vomiting Genitourinary Genitourinary: Denies dysuria Neurologic Neurologic: Reports tremor(s); Denies focal weakness or numbness Psychiatric Psychiatric: Reports anxiety; Denies depression, homicidal ideation or suicidal ideation Vital Signs Vital Signs Vital Signs: 02/28/22 09:17 Temperature 97.8 F Temperature Source Temporal Pulse Rate 98 Respiratory Rate 18 Blood Pressure 144/94 H Blood Pressure Mean 110 Pulse Ox 97 Oxygen Delivery Method Room Air Weight Weight: 187 lb 9.814 oz Body Mass Index (BMI) 25.4 Physical Exam Narrative General: Alert, Oriented x3, Cooperative, No apparent distress, tremors HEENT: Atraumatic, PERRLA, EOMI, Normocephalic Oral: Moist Mucosa Neck: Supple, No JVD Lungs: Clear to auscultation, Normal air movement, No rhonchi, No wheeze, No rales Cardiovascular: Regular rate, Regular Rhythm, Normal S1, Normal S2, No murmurs Abdomen: Soft, Non Tender, Non-Distended, No Hepato-splenomegaly Extremities: No edema, Capillary Refill Less than 3 Seconds Skin: No rashes, No breakdown Musculoskeletal: No Tenderness to Palpation of Joints or Extremities Neurological: Cranial nerves II-XII grossly intact, Motor Exam 5/5 strength throughout, Sensory exam intact to light touch and pain Psych/Mental Status: Flat affect, anxious Results Lab / Micro Data Result Diagrams: 02/28/22 09:35 02/28/22 09:35 Labs: Laboratory Results - last 24 hr 02/28/22 09:35: WBC 8.1, RBC 4.83, Hgb 14.8, Hct 41.2, MCV 85.3, MCH 30.6, MCHC 35.9, RDW Std Deviation 37.9, RDW Coeff of Alden 12.2, Plt Count 241, MPV 11.0, Immature Gran % (Auto) 0.100, Neut % (Auto) 46.2 L, Lymph % (Auto) 39.7, [place] % (Auto) 5.9, Eos % (Auto) 7.5 H, Baso % (Auto) 0.6, Absolute Neuts (auto) 3.7, Absolute Lymphs (auto) 3.21, Nucleated RBC % 0 02/28/22 09:35: Sodium 143, Potassium 3.6, Chloride 107, Carbon Dioxide 30.0, Anion Gap 6, BUN 16, Creatinine 1.09, Estim Creat Clear Calc 109.76, Est GFR (MDRD) Af Amer 102, Est GFR (MDRD) Non-Af 85, BUN/Creatinine Ratio 14.7, Glucose 99, Calcium 8.9, Total Bilirubin 0.50, AST 14 L, ALT 23, Alkaline Phosphatase 62, Total Protein 7.2, Albumin 3.6, Globulin 3.6, Albumin/Globulin Ratio 1.0 02/28/22 09:35: Ethyl Alcohol < 3.0 Assessment & Plan Assessment/Plan (1) Opioid withdrawal: PLAN: Plan 1. Acute opiate withdrawal/tobacco abuse ? He left AMA for 5 months ago ? Continue with opiate withdrawal protocol ? Plan for [facility] ? Encouraged tobacco cessation can provide a nicotine patch if necessary DVT: Ambulation Charges/Coding Visit Charges Inpatient E&M: 60401 Init Hosp L2
[2022-02-28 11:16] VITALS: BP 144/94; PULSE 98; RESP 18; TEMP 36.6; O2SAT 97
[2022-02-28 11:31] VITALS: BMI 25.4
[2022-02-28 11:43] LABS: Amphetamine Urine VISTA POSITIVE (<1000 ng/mL); Barbiturate Urine VISTA NEGATIVE (< 200 ng/mL); Benzodiazepine Urine VISTA NEGATIVE (< 200 ng/mL); Cocaine Urine VISTA NEGATIVE (< 300 ng/mL); Ecstacy Urine VISTA NEGATIVE (< 500 ng/mL); Methadone Urine VISTA NEGATIVE (< 300 ng/mL); PCP Urine VISTA NEGATIVE (< 25 ng/mL); THC Urine VISTA NEGATIVE (< 50 ng/mL); Vista UDS pH Range 7
[2022-02-28] MEDS: Buprenorphine HCl 2 MG TAB.SUBL SL ×2 (12:39→20:38)
--- NOTE | 2022-02-28 13:44 | ADDICTION ---
This worker met with Pt. Completed ASAM, AUDIT, DUDIT, MSE and ANNETTA. Pt plans to follow up with [facility] treatment. The plan is for [facility] to pick him up Thursday.
--- NOTE | 2022-02-28 13:47 | NURSING ---
pt with ball of sock-like materials in his hands on way back from bathroom according to Adrienne employment specialist/program manager while she was in room with pt. Nurses to room- asked again if pt had any belongings on him including cell phone. pt states no pt then asked again and verbalizes he has his cell phone. pt removes a ramirez stocking hat from his pillow that has a cell phone, a automobile club information clerk and some other items in it. pt apologizes. pt states i have to be in touch with my baby momma because she flips. pt agrees to turn cell phone off, tote at bedside opened and pt belongings placed into tote with all of other personal effects and zip tied the top shut. pt states he has no other belongings on him, pillow case removed from bed and new one placed. Adrienne employment specialist/program manager also at bedside during this event. pt again apologizes then continues to eat his lunch.
[2022-02-28 16:23] VITALS: BP 135/81; PULSE 77; RESP 18; TEMP 36.8; O2SAT 99
[2022-02-28] MEDS: hydrOXYzine PAM 25 MG Capsule 50 MG PO (17:15)
[2022-02-28 20:33] VITALS: BP 134/84; PULSE 72; RESP 16; TEMP 36.5; O2SAT 100
[2022-02-28] MEDS: Methocarbamol 750 MG Tablet 1500 MG PO (20:38)
[2022-02-28] MEDS: traZODone 100 MG Tablet PO (20:38)
[2022-03-01 03:00] VITALS: BP 128/80; PULSE 82; RESP 18; TEMP 36.9; O2SAT 97
[2022-03-01] MEDS: Buprenorphine HCl 2 MG TAB.SUBL SL ×3 (03:44→20:51)
--- NOTE | 2022-03-01 07:56 | PN.HOSP_ITS ---
Subjective Subjective Doing well, no issues overnight. Cina score of 2 this morning Objective Data Objective Data Vital Signs: Vital Signs Temp Pulse Resp BP Pulse Ox O2 Del Method 98.4 F 82 18 128/80 H 97 Room Air 03/01/22 03:00 03/01/22 03:00 03/01/22 03:00 03/01/22 03:00 03/01/22 03:00 03/01/22 03:00 Oxygen Delivery Method Room Air Weight: 187 lb 9.814 oz Body Mass Index (BMI) 25.4 Intake & Output: Intake and Output for Last 24 Hours 02/28/22 03/01/22 03/02/22 03:59 03:59 03:59 Intake Total 800 / 800 1000 / 1000 Balance 800 / 800 1000 / 1000 Lab / Micro Data Result Diagrams: 02/28/22 09:35 02/28/22 09:35 Labs: Laboratory Results - last 24 hr 02/28/22 09:35: WBC 8.1, RBC 4.83, Hgb 14.8, Hct 41.2, MCV 85.3, MCH 30.6, MCHC 35.9, RDW Std Deviation 37.9, RDW Coeff of Alden 12.2, Plt Count 241, MPV 11.0, Immature Gran % (Auto) 0.100, Neut % (Auto) 46.2 L, Lymph % (Auto) 39.7, [place] % (Auto) 5.9, Eos % (Auto) 7.5 H, Baso % (Auto) 0.6, Absolute Neuts (auto) 3.7, Absolute Lymphs (auto) 3.21, Nucleated RBC % 0 02/28/22 09:35: Sodium 143, Potassium 3.6, Chloride 107, Carbon Dioxide 30.0, Anion Gap 6, BUN 16, Creatinine 1.09, Estim Creat Clear Calc 109.76, Est GFR (MDRD) Af Amer 102, Est GFR (MDRD) Non-Af 85, BUN/Creatinine Ratio 14.7, Glucose 99, Calcium 8.9, Total Bilirubin 0.50, AST 14 L, ALT 23, Alkaline Phosphatase 62, Total Protein 7.2, Albumin 3.6, Globulin 3.6, Albumin/Globulin Ratio 1.0 02/28/22 09:35: Ethyl Alcohol < 3.0 09/30/22 11:20: Urine Opiates Screen NEGATIVE, Urine Methadone Screen NEGATIVE, Ur Barbiturates Screen NEGATIVE, Ur Phencyclidine Scrn NEGATIVE, Ur Amphetamines Screen POSITIVE H, MDMA (Ecstasy) Screen NEGATIVE, U Benzodiazepines Scrn N EGATIVE, Urine Cocaine Screen NEGATIVE, U Cannabinoids Screen NEGATIVE, Ur Drug Screen Comment Physical Exam Narrative General: Alert, Oriented x3, Cooperative, No apparent distress, tremors HEENT: Atraumatic, PERRLA, EOMI, Normocephalic Oral: Moist Mucosa Neck: Supple, No JVD Lungs: Clear to auscultation, Normal air movement, No rhonchi, No wheeze, No rales Cardiovascular: Regular rate, Regular Rhythm, Normal S1, Normal S2, No murmurs Abdomen: Soft, Non Tender, Non-Distended, No Hepato-splenomegaly Extremities: No edema, Capillary Refill Less than 3 Seconds Skin: No rashes, No breakdown Musculoskeletal: No Tenderness to Palpation of Joints or Extremities Neurological: Cranial nerves II-XII grossly intact, Motor Exam 5/5 strength throughout, Sensory exam intact to light touch and pain Psych/Mental Status: Flat affect, anxious Assessment & Plan Assessment/Plan (1) Opioid withdrawal: PLAN: Plan 1. Acute opiate withdrawal/tobacco abuse ? He left AMA from detox 5 months ago ? Continue with opiate withdrawal protocol ? Plan for discharge on Thursday to ? Encouraged tobacco cessation can provide a nicotine patch if necessary DVT: Ambulation Charges/Coding Visit Charges Inpatient E&M: 57945 Subs Hosp L2
[2022-03-01 08:43] VITALS: BP 128/78; PULSE 84; RESP 16; TEMP 37; O2SAT 99
[2022-03-01] MEDS: hydrOXYzine PAM 25 MG Capsule 50 MG PO (10:13)
[2022-03-01] MEDS: Methocarbamol 750 MG Tablet 1500 MG PO (10:18)
[2022-03-01] MEDS: Gabapentin 300 MG Capsule PO (10:19)
[2022-03-01 12:50] VITALS: BP 133/77; PULSE 84; RESP 14; TEMP 36.6; O2SAT 97
[2022-03-01 20:30] VITALS: BP 134/84; PULSE 90; RESP 16; TEMP 36.4; O2SAT 97
--- NOTE | 2022-03-01 23:09 | NURSING ---
Gets frustrated with staff when they wake him for vitals and assessment. Complains that he just wants to sleep.
[2022-03-02 03:56] VITALS: BP 130/87; PULSE 70; RESP 16; TEMP 36.3; O2SAT 100
[2022-03-02] MEDS: Buprenorphine HCl 2 MG TAB.SUBL SL ×2 (03:59→12:35)
[2022-03-02 08:21] VITALS: BP 104/84; PULSE 78; RESP 14; TEMP 36.6; O2SAT 97
[2022-03-02] MEDS: Gabapentin 300 MG Capsule PO (09:11)
[2022-03-02] MEDS: hydrOXYzine PAM 25 MG Capsule 50 MG PO (09:11)
[2022-03-02] MEDS: Methocarbamol 750 MG Tablet 1500 MG PO (09:11)
--- NOTE | 2022-03-02 09:50 | PCM.PN.HOSP ---
Subjective Subjective Broke into the sealed boxes overnight, if he does this again he will be dismissed from the hospital in the program. Cina score of 1 Objective Data Objective Data Vital Signs: Vital Signs Temp Pulse Resp BP Pulse Ox O2 Del Method 97.9 F 78 14 104/84 H 97 Room Air 03/02/22 08:21 03/02/22 08:21 03/02/22 08:21 03/02/22 08:21 03/02/22 08:21 03/02/22 08:21 Oxygen Delivery Method Room Air Weight: 187 lb 9.814 oz Body Mass Index (BMI) 25.4 Intake & Output: Intake and Output for Last 24 Hours 03/01/22 03/02/22 03/03/22 03:59 03:59 03:59 Intake Total 800 / 800 2300 / 2300 Balance 800 / 800 2300 / 2300 Lab / Micro Data Result Diagrams: 02/28/22 09:35 02/28/22 09:35 Physical Exam Narrative General: Alert, Oriented x3, Cooperative, No apparent distress, tremors HEENT: Atraumatic, PERRLA, EOMI, Normocephalic Oral: Moist Mucosa Neck: Supple, No JVD Lungs: Clear to auscultation, Normal air movement, No rhonchi, No wheeze, No rales Cardiovascular: Regular rate, Regular Rhythm, Normal S1, Normal S2, No murmurs Abdomen: Soft, Non Tender, Non-Distended, No Hepato-splenomegaly Extremities: No edema, Capillary Refill Less than 3 Seconds Skin: No rashes, No breakdown Musculoskeletal: No Tenderness to Palpation of Joints or Extremities Neurological: Cranial nerves II-XII grossly intact, Motor Exam 5/5 strength throughout, Sensory exam intact to light touch and pain Psych/Mental Status: Flat affect Assessment & Plan Assessment/Plan (1) Opioid withdrawal: PLAN: Plan 1. Acute opiate withdrawal/tobacco abuse ? He left AMA from detox 5 months ago ? Continue with opiate withdrawal protocol ? Plan for discharge on Thursday to [facility] ? Encouraged tobacco cessation can provide a nicotine patch if necessary DVT: Ambulation Charges/Coding Visit Charges Inpatient E&M: 44796 Subs Hosp L2
[2022-03-02 12:29] VITALS: BP 141/87; PULSE 85; RESP 14; TEMP 36.7; O2SAT 97
[2022-03-03 00:04] VITALS: BP 122/82; PULSE 72; RESP 16; TEMP 37; O2SAT 99
[2022-03-03] MEDS: Buprenorphine HCl 2 MG TAB.SUBL SL (00:09)
--- NOTE | 2022-03-03 01:38 | NURSING ---
patient refusing care at times. States he wants to sleep and not be bothered. Will notify staff if needing any prn meds. Staff continuing to round on patient.
[2022-03-03 08:00] VITALS: BP 133/91; PULSE 111; RESP 16; TEMP 36.9; O2SAT 98
--- NOTE | 2022-03-03 09:13 | PCM.DC.SUM ---
Providers Date of Admission: 02/28/22 Date of Discharge: 03/03/22 Primary Care Physician: No Primary Care Phys Reason For Visit: DETOX Diagnosis Discharge Diagnosis (1) Opioid withdrawal: Status: Acute Code(s): F11.23 - Opioid dependence with withdrawal Medications at Discharge Home Medications NK 03/23/21 Hospital Course Operations None Procedures None Summary of Care Provided Minutes Spent on Discharge: 40 Hospital Course: Patient is a 31 y/o male with a PMh as outlined who was admitted via the ED on 02/28/2022 for acute opioid detox and withdrawal.Patient had presented previously several months ago for acute opioid detox but left AMA at that time. Was admitted and managed for acute opiate detox. He was started on opiate withdrawal protocol with buprenorphine. Patient did remain slightly tachycardic during admission. He completed 3 days of detox and [facility] with [facility]hab. He is follow-up with his primary care doctor within 1 to 2 weeks. Patient seen and examined prior to discharge. He had no active complaints and had an uneventful night. He said he was ready for discharge. Review of systems otherwise negative. Labs and vitals reviewed. Medication reviewed and reconciled. Physical Exam Const alert, oriented x3 and no apparent distress General Appearance: cooperative, comfortable and well kempt Orientation / Consciousness: awake Exam Limitations: no limitations HEENT normocephalic, head/scalp atraumatic, hearing grossly normal bilaterally, moist oral mucous membranes and oropharynx normal Mouth: oral and palatal mucosa normal Eyes PERRL, EOMs intact bilaterally and conjunctivae normal Neck no lymphadenopathy and supple Resp normal respiratory effort, no retractions, no use of accessory muscles and clear to auscultation bilaterally Cardio regular rhythm, S1 normal heart sound, S2 normal heart sound and no murmurs Cardio Narrative: tachycardic GI normal to inspection, nondistended, normoactive bowel sounds, soft to palpation, non-tender and non-distended Extremity normal to inspection, full ROM and no clubbing, cyanosis or edema Skin no rashes or lesions noted and no wounds Neuro oriented x3, CN's II-XII intact bilaterally, moves all extremities and no focal motor deficits Sensorium / Orientation: awake and alert Speech: speech normal Motor Exam: strength 5/5 throughout Psych affect normal Weight / BMI Weight Weight: 187 lb 9.814 oz Body Mass Index (BMI) 25.4 ABG / Lab / Microbiology Data Result Diagrams: 02/28/22 09:35 02/28/22 09:35 D/C Instructions Discharge Diet: No restrictions Discharge Activity: Return to Normal Activity Weight Bearing Status: Weight bearing as tolerated Meaningful Use Info Meaningful Use Diagnoses (Choose all that apply): None applicable Discharge Plan Admission Admit Date/Time: 02/28/22 10:43 Primary Reason for Your Visit: acute opioid withdrawal Attending Provider: Sisi Navarro Primary Care Provider: Care Physician,No Primary Consulting Providers: Juan R Arciniega Instructions Patient Instructions: Understanding ..., ED Opioid Withdrawal Discharge Orders/Prescriptions Prescriptions: No Action NK Referrals / Follow Up: Care Physician,No Primary [Primary Care Provider] - Within 2 Weeks Disposition Disposition (needs filled in before D/C Order can be placed): Home, Self Care Charges/Coding Visit Charges Inpatient E&M: 97179 Disch Hosp
[2022-03-03 09:19] VITALS: BP 133/91; PULSE 111; RESP 18; TEMP 36.9; O2SAT 98
== END 2022-03-03 09:28 | disposition home or self-care (01) | DRG 773 ==
LOC: ED 10:52 → MS3 11:22
PROVIDERS: Admitting Provider Family Medicine; Emergency Provider Emergency Medicine; Visit Provider Student in an Organized Health Care Education/Training Program
DX: F11.23 Opioid dependence with withdrawal (principal); F15.90 Other stimulant use, unspecified, uncomplicated; F17.210 Nicotine dependence, cigarettes, uncomplicated; Z91.199 Patient's noncompliance with other medical treatment and regimen due to unspecified reason
CPT/HCPCS: 36415; 80053; 80307; 82077; 85025; 97802; 99283; 99406